=== PATIENT | male | born 1970 | race Caucasian/White ===

== ENCOUNTER 2020-08-16 10:42 | Inpatient (IN) | payer OTHER, MEDICAID, SELFPAY ==
[2020-08-16] VITALS (13 sets, daily range): BP systolic 140–172; BP diastolic 92–108; PULSE 79–95; RESP 13–22; TEMP 36.7–37; O2SAT 74–97; BMI 32.5; BMI 33.0
--- NOTE | 2020-08-16 11:05 | ED.ABDPAIN ---
HPI - Abdominal Pain <[facility] - Last Filed: 08/16/20 15:35> General Chief Complaint: Abdominal Pain Stated Complaint: irratability lower abd/progressively worse 1 month Time Seen by Provider: 08/16/20 10:50 Source: patient Mode of arrival: Ambulatory Limitations: no limitations History of Present Illness HPI narrative: The patient is a 50-year-old male current smoker with history of ?sensitive stomach who presents with a chief complaint of abdominal pain getting worse over the past 6-8 weeks. 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 He states that he has been vomiting every night. He does states that if anyone takes too much ibuprofen, it is me.He also endorses drinking alcohol every night to sleep. He has been waking with night sweats and chills. Endorses vomiting every night. States that he drinks every night due to his chronic ankle pain. He states that his pain is in the right lower quadrant goes across his entire abdomen. He felt a tearing sensation with increased pain recently. Denies any rectal pain or pressure. Denies any risk of sexually transmitted infections. Denies any dysuria, but states that his entire abdomen hurts when he urinates. Related Data Allergies Allergy/AdvReac Type Severity Reaction Status Date / Time No Known Drug Allergies Allergy Verified 08/16/20 10:52 Review of Systems <FABBY BeaversPSindhu - Last Filed: 08/16/20 15:35> Review of Systems Narrative: GENERAL: Denies chills, fatigue, malaise, fever, sweats. HEENT: Denies sinus pain, ear pain, sore throat, difficulty swallowing, dizziness. RESPIRATORY: Denies dyspnea, cough, wheezing, hemoptysis, sputum. CARDIOVASCULAR: Denies chest pain, palpitations, orthopnea, edema, GASTROINTESTINAL: See HPI : Denies dysuria, frequency, incontinence, hematuria, urinary retention. MUSCULOSKELETAL: denies weakness, joint pain, or bony pain SKIN: Denies rash, skin lesions, or other NEUROLOGIC: Denies weakness, headache, numbness, change in speech, confusion, seizures, incoordination. PSYCHIATRIC: No concerning psychosocial issues. 12 point review of systems is negative except for those stated above Patient History <[facility] - Last Filed: 08/16/20 15:35> Medical History (Updated 08/16/20 @ 15:24 by Michael Bonner MD) Arthritis History of kidney stones Surgical History (Updated 08/16/20 @ 15:11 by Michael Bonner MD) History of ankle surgery Family History (Updated 08/16/20 @ 15:15 by Michael Bonner MD) Other Adopted Social History Smoking Status: Current every day smoker Smoking Status: Current every day smoker tobacco type: cigarettes alcohol intake frequency: 0-2 drinks per day Substance Use Type: marijuana Exam <RONALDO Beavers - Last Filed: 08/16/20 15:35> Narrative Exam Narrative: GENERAL: This is a well-nourished, well-developed patient, in appears slightly uncomfortable HEAD: Atraumatic. Normocephalic. No temporal or scalp tenderness. EYES: Pupils equal round and reactive. Extraocular motions intact. No scleral icterus. No injection or drainage. ENT: Nose without bleeding, purulent drainage or septal hematoma. Wearing a mask. Airway patent. NECK: Trachea midline. No JVD or lymphadenopathy. Supple, nontender, no meningeal signs. CARDIOVASCULAR: Regular rate and rhythm RESPIRATORY: Clear to auscultation. Breath sounds equal bilaterally. No wheezes, rales, or rhonchi. No cough. No increased respiratory effort. No accessory muscle use. GASTROINTESTINAL: Abdomen soft, slightly distended, active bowel sounds. No hepato-splenomegaly, or palpable masses. Diffusely tender with guarding noted right lower quadrant, left lower quadrant EXTREMITIES: No clubbing, cyanosis, or edema. No joint tenderness, effusion, or edema noted. BACK: Nontender without deformity or crepitance. No flank tenderness. NEURO: AOx3. SKIN: No rash or erythema on visible skin Initial Vital Signs Initial Vital Signs: Vital Signs Temperature 98.0 F 08/16/20 10:50 Pulse Rate 95 H 08/16/20 10:50 Respiratory Rate 16 08/16/20 10:50 Blood Pressure 156/106 H 08/16/20 10:50 Pulse Oximetry 95 08/16/20 10:50 <Chris Neff DO - Last Filed: 08/16/20 16:26> Initial Vital Signs Initial Vital Signs: Vital Signs Temperature 98.0 F 08/16/20 10:50 Pulse Rate 95 H 08/16/20 10:50 Respiratory Rate 16 08/16/20 10:50 Blood Pressure 156/106 H 08/16/20 10:50 Pulse Oximetry 95 08/16/20 10:50 Scores <Cheryle Bell GLOBAL MARKETING MANAGERSindhuBC - Last Filed: 08/16/20 15:35> GCS [place] coma scale eye opening: Spontaneous Main coma scale verbal response: Orientated [place] coma scale motor response: Obey commands Main coma scale total score: 15 Course <Cheryle BellARIESBC - Last Filed: 08/16/20 15:35> Orders Ordered: ED Orders 08/16/20 10:53 EKG-12 Lead Stat 08/16/20 11:00 Amylase Stat Complete Blood Count AUTO DIFF Stat Comprehensive Metabolic Panel Stat D Dimer Stat Ethanol (ETOH) Stat Lactate (Lactic Acid) Stat Lipase Stat Partial Thromboplastin Time Stat Prothrombin Time INR Stat 08/16/20 11:11 XR acute abdomen series Stat 08/16/20 11:13 COVID19 Stat 08/16/20 12:53 CT abdomen pelvis w con Stat Acetaminophen (Acetaminophen 325 Mg Tablet) 650 mg PO Q6HR PRN PRN Reason: Pain, Mild (1-3) Enoxaparin Sodium (Enoxaparin 40 Mg/0.4 Ml Syringe) 40 mg SUBCUT DAILY [facility] Gabapentin (Gabapentin 300 Mg Capsule) 300 mg PO BID [facility] Hydromorphone HCl (Hydromorphone 1 Mg Inj) 1 mg IV Q4HR PRN PRN Reason: Pain, Severe (7-10) Lactated Ringer's (Lactated Ringers) 1,000 mls @ 150 mls/hr IV CONT MARTY Ketorolac Tromethamine (Ketorolac 30 Mg/Ml Vial) 30 mg IV Q6HR PRN PRN Reason: Pain, Moderate (4-6) Stop: 08/21/20 14:55 Naloxone HCl (Naloxone 0.4 Mg/Ml Vial) 0.2 mg IV Q2MIN PRN PRN Reason: Opiate Reversal Nicotine (Nicotine 14 Patch) 14 mg TOP DAILY [facility] Ondansetron HCl (Ondansetron 4 Mg/2 Ml Inj) 4 mg IV Q4HR PRN PRN Reason: Nausea And Vomiting Pantoprazole Sodium (Pantoprazole 40 Mg Vial) 40 mg IV DAILY MARTY Discontinued Medications Sodium Chloride (Normal Saline 0.9%) 1,000 mls @ 1,000 mls/hr IV BOLUS ONE Stop: 08/16/20 12:14 Last Infusion: 08/16/20 12:30 Dose: 0 mls/hr Documented by: Admin: 08/16/20 11:30 Dose: 1,000 mls/hr Documented by: MARY Sodium Chloride (Normal Saline 0.9%) 1,000 mls @ 1,000 mls/hr IV BOLUS ONE Stop: 08/16/20 13:51 Last Admin: 08/16/20 13:08 Dose: 1,000 mls/hr Documented by: MARY Metronidazole (Flagyl) 500 mg in 100 mls @ 100 mls/hr IV NOW ONE Stop: 08/16/20 14:55 Last Infusion: 08/16/20 15:12 Dose: 0 mls/hr Documented by: Admin: 08/16/20 14:08 Dose: 100 mls/hr Documented by: PAMELA Ciprofloxacin (Cipro) 400 mg in 200 mls @ 200 mls/hr IV NOW [facility] Piperacillin Sod/Tazobactam (Sod 4.5 gm/ Sodium Chloride) 100 mls @ 200 mls/hr IV NOW ONE Stop: 08/16/20 14:13 Last Admin: 08/16/20 14:55 Dose: 200 mls/hr Documented by: MARY Ondansetron HCl (Ondansetron 4 Mg/2 Ml Inj) 4 mg IV NOW ONE Stop: 08/16/20 11:16 Last Admin: 08/16/20 11:30 Dose: 4 mg Documented by: MARY Pantoprazole Sodium (Pantoprazole 40 Mg Vial) 40 mg IV NOW ONE Stop: 08/16/20 12:53 Last Admin: 08/16/20 13:07 Dose: 40 mg Documented by: MARY Vital Signs Vital signs: Vital Signs - 8 hr 08/16/20 10:50 08/16/20 11:47 08/16/20 12:29 Temperature 98.0 F Pulse Rate 95 H 84 Respiratory Rate 16 22 14 Blood Pressure 156/106 H Pulse Oximetry 95 88 L 94 08/16/20 12:30 08/16/20 13:00 08/16/20 13:30 Temperature Pulse Rate 83 82 81 Respiratory Rate 13 14 14 Blood Pressure 156/96 H 140/95 H Pulse Oximetry 94 92 95 08/16/20 14:00 08/16/20 14:31 Temperature Pulse Rate 80 Respiratory Rate 15 Blood Pressure Pulse Oximetry 96 74 L <Chris Neff, DO - Last Filed: 08/16/20 16:26> Orders Ordered: ED Orders 08/16/20 10:53 EKG-12 Lead Stat 08/16/20 11:00 Amylase Stat Complete Blood Count AUTO DIFF Stat Comprehensive Metabolic Panel Stat D Dimer Stat Ethanol (ETOH) Stat Lactate (Lactic Acid) Stat Lipase Stat Partial Thromboplastin Time Stat Prothrombin Time INR Stat 08/16/20 11:11 XR acute abdomen series Stat 08/16/20 11:13 COVID19 Stat 08/16/20 12:53 CT abdomen pelvis w con Stat Acetaminophen (Acetaminophen 325 Mg Tablet) 650 mg PO Q6HR PRN PRN Reason: Pain, Mild (1-3) Enoxaparin Sodium (Enoxaparin 40 Mg/0.4 Ml Syringe) 40 mg SUBCUT DAILY [facility] Gabapentin (Gabapentin 300 Mg Capsule) 300 mg PO BID [facility] Hydromorphone HCl (Hydromorphone 1 Mg Inj) 1 mg IV Q4HR PRN PRN Reason: Pain, Severe (7-10) Lactated Ringer's (Lactated Ringers) 1,000 mls @ 150 mls/hr IV CONT MARTY Ketorolac Tromethamine (Ketorolac 30 Mg/Ml Vial) 30 mg IV Q6HR PRN PRN Reason: Pain, Moderate (4-6) Stop: 08/21/20 14:55 Naloxone HCl (Naloxone 0.4 Mg/Ml Vial) 0.2 mg IV Q2MIN PRN PRN Reason: Opiate Reversal Nicotine (Nicotine 14 Patch) 14 mg TOP DAILY [facility] Ondansetron HCl (Ondansetron 4 Mg/2 Ml Inj) 4 mg IV Q4HR PRN PRN Reason: Nausea And Vomiting Pantoprazole Sodium (Pantoprazole 40 Mg Vial) 40 mg IV DAILY MARTY Discontinued Medications Sodium Chloride (Normal Saline 0.9%) 1,000 mls @ 1,000 mls/hr IV BOLUS ONE Stop: 08/16/20 12:14 Last Infusion: 08/16/20 12:30 Dose: 0 mls/hr Documented by: Admin: 08/16/20 11:30 Dose: 1,000 mls/hr Documented by: MARY Sodium Chloride (Normal Saline 0.9%) 1,000 mls @ 1,000 mls/hr IV BOLUS ONE Stop: 08/16/20 13:51 Last Admin: 08/16/20 13:08 Dose: 1,000 mls/hr Documented by: MARY Metronidazole (Flagyl) 500 mg in 100 mls @ 100 mls/hr IV NOW ONE Stop: 08/16/20 14:55 Last Infusion: 08/16/20 15:12 Dose: 0 mls/hr Documented by: Admin: 08/16/20 14:08 Dose: 100 mls/hr Documented by: PAMELA Ciprofloxacin (Cipro) 400 mg in 200 mls @ 200 mls/hr IV NOW MARTY Piperacillin Sod/Tazobactam (Sod 4.5 gm/ Sodium Chloride) 100 mls @ 200 mls/hr IV NOW ONE Stop: 08/16/20 14:13 Last Admin: 08/16/20 14:55 Dose: 200 mls/hr Documented by: MARY Ondansetron HCl (Ondansetron 4 Mg/2 Ml Inj) 4 mg IV NOW ONE Stop: 08/16/20 11:16 Last Admin: 08/16/20 11:30 Dose: 4 mg Documented by: MARY Pantoprazole Sodium (Pantoprazole 40 Mg Vial) 40 mg IV NOW ONE Stop: 08/16/20 12:53 Last Admin: 08/16/20 13:07 Dose: 40 mg Documented by: MARY Vital Signs Vital signs: Vital Signs - 8 hr 08/16/20 10:50 08/16/20 11:47 08/16/20 12:29 Temperature 98.0 F Pulse Rate 95 H 84 Respiratory Rate 16 22 14 Blood Pressure 156/106 H Pulse Oximetry 95 88 L 94 08/16/20 12:30 08/16/20 13:00 08/16/20 13:30 Temperature Pulse Rate 83 82 81 Respiratory Rate 13 14 14 Blood Pressure 156/96 H 140/95 H Pulse Oximetry 94 92 95 08/16/20 14:00 08/16/20 14:31 Temperature Pulse Rate 80 Respiratory Rate 15 Blood Pressure Pulse Oximetry 96 74 L MDM - Abdominal Pain <Cheryle Bell, GLOBAL MARKETING MANAGER-BC - Last Filed: 08/16/20 15:35> Differential Diagnosis Differential diagnosis: Likely abdominal pain, calculus of kidney, constipation and diverticulitis Lab Data Attestation: I reviewed the patient's lab results. Result diagrams: 08/16/20 11:00 08/16/20 11:00 Labs: Lab Results 08/16/20 08/16/20 08/16/20 Range/Units 11:00 11:00 11:00 WBC 12.3 H (4.5-11.0) X10^3/uL RBC 5.94 H (4.5-5.9) X10^6/uL Hgb 19.4 H (13.5-17.5) g/dL Hct 57.0 H (41-53) % MCV 95.9 (80-100) fL MCH 32.6 (26-34) PG MCHC 34.0 (30-36) % RDW 15.7 H (11.6-14.8) % Plt Count 214 (150-400) X10^3/uL Neut % (Auto) 65.9 (50-75) % Lymph % (Auto) 21.4 L (25-40) % [place] % (Auto) 11.7 (3-14) % Eos % (Auto) 0.6 L (2-4) % Baso % (Auto) 0.4 (0-2) % Neut # (Auto) 8100 H (2184-0832) /uL Lymph # (Auto) 2600 (4854-7757) /uL [place] # (Auto) 1400 H (0-900) /uL Eos # (Auto) 100 (0-450) /uL Baso # (Auto) 0 (0-100) /uL PT 11.8 (10.1-12.7) SECONDS INR 1.0 (0.9-1.3) APTT 33 (26.4-36.2) SECONDS D-Dimer (<230) ng/mL Sodium 141 (137-145) mmol/L Potassium 4.4 (3.4-5.1) mmol/L Chloride 105 (98-107) mmol/L Carbon Dioxide 28 (22-32) mmol/L BUN 14 (9-20) mg/dL Creatinine 1.23 (0.66-1.25) mg/dL Estimated GFR > 60.0 (>60) mL/min BUN/Creatinine Ratio 11.4 (6-22) Glucose 107 H (70-100) mg/dL Lactate (0.7-2.1) mmol/L Calcium 9.3 (8.4-10.2) mg/dL Total Bilirubin 0.6 (0.2-1.3) mg/dL AST 31 (17-59) IU/L ALT 32 (<50) IU/L Alkaline Phosphatase 53 (38-126) U/L Total Protein 8.2 (6.3-8.2) g/dL Albumin 4.6 (3.5-5.0) g/dL Globulin 3.6 (1.7-4.1) g/dL Albumin/Globulin Ratio 1.3 (1.0-2.8) Amylase (30-110) U/L Lipase 126 (23-300) U/L Ethyl Alcohol ( - 10) mg/dL SARS-CoV-2 (PCR) (Negative) 08/16/20 08/16/20 08/16/20 Range/Units 11:00 11:00 11:00 WBC (4.5-11.0) X10^3/uL RBC (4.5-5.9) X10^6/uL Hgb (13.5-17.5) g/dL Hct (41-53) % MCV (80-100) fL MCH (26-34) PG MCHC (30-36) % RDW (11.6-14.8) % Plt Count (150-400) X10^3/uL Neut % (Auto) (50-75) % Lymph % (Auto) (25-40) % [place] % (Auto) (3-14) % Eos % (Auto) (2-4) % Baso % (Auto) (0-2) % Neut # (Auto) (5643-6975) /uL Lymph # (Auto) (6747-9594) /uL [place] # (Auto) (0-900) /uL Eos # (Auto) (0-450) /uL Baso # (Auto) (0-100) /uL PT (10.1-12.7) SECONDS INR (0.9-1.3) APTT (26.4-36.2) SECONDS D-Dimer (<230) ng/mL Sodium (137-145) mmol/L Potassium (3.4-5.1) mmol/L Chloride (98-107) mmol/L Carbon Dioxide (22-32) mmol/L BUN (9-20) mg/dL Creatinine (0.66-1.25) mg/dL Estimated GFR (>60) mL/min BUN/Creatinine Ratio (6-22) Glucose (70-100) mg/dL Lactate 1.3 (0.7-2.1) mmol/L Calcium (8.4-10.2) mg/dL Total Bilirubin (0.2-1.3) mg/dL AST (17-59) IU/L ALT (<50) IU/L Alkaline Phosphatase (38-126) U/L Total Protein (6.3-8.2) g/dL Albumin (3.5-5.0) g/dL Globulin (1.7-4.1) g/dL Albumin/Globulin Ratio (1.0-2.8) Amylase 84 (30-110) U/L Lipase (23-300) U/L Ethyl Alcohol < 10 ( - 10) mg/dL SARS-CoV-2 (PCR) (Negative) 08/16/20 08/16/20 Range/Units 11:00 11:13 WBC (4.5-11.0) X10^3/uL RBC (4.5-5.9) X10^6/uL Hgb (13.5-17.5) g/dL Hct (41-53) % MCV (80-100) fL MCH (26-34) PG MCHC (30-36) % RDW (11.6-14.8) % Plt Count (150-400) X10^3/uL Neut % (Auto) (50-75) % Lymph % (Auto) (25-40) % [place] % (Auto) (3-14) % Eos % (Auto) (2-4) % Baso % (Auto) (0-2) % Neut # (Auto) (3992-9277) /uL Lymph # (Auto) (3844-9698) /uL [place] # (Auto) (0-900) /uL Eos # (Auto) (0-450) /uL Baso # (Auto) (0-100) /uL PT (10.1-12.7) SECONDS INR (0.9-1.3) APTT (26.4-36.2) SECONDS D-Dimer 352 H (<230) ng/mL Sodium (137-145) mmol/L Potassium (3.4-5.1) mmol/L Chloride (98-107) mmol/L Carbon Dioxide (22-32) mmol/L BUN (9-20) mg/dL Creatinine (0.66-1.25) mg/dL Estimated GFR (>60) mL/min BUN/Creatinine Ratio (6-22) Glucose (70-100) mg/dL Lactate (0.7-2.1) mmol/L Calcium (8.4-10.2) mg/dL Total Bilirubin (0.2-1.3) mg/dL AST (17-59) IU/L ALT (<50) IU/L Alkaline Phosphatase (38-126) U/L Total Protein (6.3-8.2) g/dL Albumin (3.5-5.0) g/dL Globulin (1.7-4.1) g/dL Albumin/Globulin Ratio (1.0-2.8) Amylase (30-110) U/L Lipase (23-300) U/L Ethyl Alcohol ( - 10) mg/dL SARS-CoV-2 (PCR) Negative (Negative) Point of care testing: Urine Dip Bedside Urine Glucose Negative Bedside Urine Bilirubin - Negative Bedside Urine Ketone - Negative Urine Specific [place] 1.010 Bedside Urine Occult Blood +/- Bedside Urine pH 6 Bedside Urine Protein - Negative Bedside Urine Urobilinogen - Negative Bedside Urine Nitrite - Negative Bedside Urine Leukocytes - Negative Esterase Imaging Data Abdominal x-ray: Radiologist's Impression: [address] [place] [id number] ReportSigned Patient: Bari Martínez KMR#: [id number]: 1970Acct:[id number]/Sex: 50 / MDate of Service: 08/16/20Loc: EDAccession Number: [id number] Procedure: XR acute abdomen series Ordering Provider: Cheryle Bell-FRANCESCO PROCEDURE: XR ACUTE ABDOMEN SERIES INDICATIONS: abd pain, ? constipation TECHNIQUE: One view chest and two views of the abdomen were acquired. COMPARISON: None. FINDINGS: Surgical changes and devices: None. Chest: Lungs are clear. Heart size is normal. No pleural effusions. No pneumoperitoneum. Abdomen: Mild to moderate stool. No transition point or evidence of bowel obstruction. Bones: No suspicious bony lesions. IMPRESSION: Mild to moderate stool. No specific evidence of bowel obstruction seen at this time although if the patient's symptoms do not improve, continued surveillance with abdominal series radiographs could be performed. Dictated by: Sal Rodríguez M.D. on 08/16/2020 at 12:00 Approved by: Sal Rodríguez M.D. on 08/16/2020 at 12:01 CT scan - abdomen/pelvis: Radiologist's Impression: [address] [place] [id number] Scan ReportSigned Patient: Bari Martínez KMR#: [id number]: 1970Acct:[id number]/Sex: 50 / MDate of Service: 08/16/20Loc: EDAccession Number: [id number] Procedure: CT abdomen pelvis w con Ordering Provider: Cheryle Bell- PROCEDURE: CT ABDOMEN PELVIS W CON INDICATIONS: abd pain, bloating TECHNIQUE: After the administration of intravenous contrast, 5 mm thick sections acquired from the diaphragm to the symphysis. 5 mm coronal and sagittal reformats were acquired. For radiation dose reduction, the following was used: automated exposure control, adjustment of mA and/or kV according to patient size. COMPARISON: None. FINDINGS: Image quality: Excellent. ABDOMEN: Lung bases: Bibasilar dependent atelectasis is seen. Heart size is normal. Solid organs: Liver is normal in size and enhancement. Gallbladder is within normal limits. Biliary system is non dilated. Pancreas enhances normally. Spleen is normal in size and enhancement. No adrenal nodules. Kidneys demonstrate normal size and enhancement, without hydronephrosis. 6 millimeter nonobstructing stone is noted in midpole of left kidney. 2-3 millimeter nonobstructing stone is seen in midpole of right kidney. Peritoneum and bowel: There is no bowel obstruction. No gastric or small bowel wall thickening. Appendix is visualized and is within normal limits. Ascending colon, transverse colon and descending colon appears within normal limits. Significant wall thickening with pericolonic fat stranding involving mid to distal portion of sigmoid colon within left lower quadrant is seen. Extensive sigmoid diverticulosis is seen. Ill-defined hypodense area medial to the inflamed mid to distal sigmoid colon is noted with surrounding fat stranding and subtle peripheral enhancement concerning for early developing abscess collection. No peritoneal free fluid or free air. Nodes and vessels: No retroperitoneal or mesenteric adenopathy by size criteria. Aorta and inferior vena cava are normal in size. Miscellaneous: No ventral hernias. PELVIS: Genitourinary: Bladder wall thickness is normal. Miscellaneous: No inguinal hernias or adenopathy. Bones: No suspicious bony lesions. No vertebral body compression fractures. IMPRESSION: 1. Finding is suggestive of acute diverticulitis involving mid to distal sigmoid colon in left lower quadrant with suggestion of early developing abscess collection medial to the inflamed sigmoid colon. No discrete drainable fluid collection is seen. No peritoneal free fluid or free air. 2. Normal appendix. No bowel obstruction. 3. Bilateral nonobstructing renal calculi. No hydronephrosis. 4. Bibasilar atelectasis. Dictated by: Levar Del Castillo M.D. on 08/16/2020 at 12:32 Approved by: Levar Del Castillo M.D. on 08/16/2020 at 12:35 ECG Data Attestation: I personally reviewed and interpreted this ECG as follows: Interpretation: Sinus rhythm. Ventricular rate 95. P.r. interval 120. QRS 90. Viewed by Dr Neff MDM Narrative Medical decision making narrative: The patient is a 50-year-old male who presents with a chief complaint of lower abdominal pain that started the week before [place]. Overall he seems well and nontoxic. Slight leukocytosis noted on lab work. Suspect possibility of gastritis given his alcohol, ibuprofen use. However given his guarding to palpation, did obtain a CT which showed diverticulitis was the possibility of an early abscess. Spoke with Dr. Bonner from surgery, antibiotics ordered, coronavirus test negative, plan to admit patient. Surgery down to evaluate patient accepted for admission. Patient is agreeable to IV antibiotics. No questions or concerns upon admission. <Chris Neff DO - Last Filed: 08/16/20 16:26> Lab Data Labs: Lab Results 08/16/20 08/16/20 08/16/20 Range/Units 11:00 11:00 11:00 WBC 12.3 H (4.5-11.0) X10^3/uL RBC 5.94 H (4.5-5.9) X10^6/uL Hgb 19.4 H (13.5-17.5) g/dL Hct 57.0 H (41-53) % MCV 95.9 (80-100) fL MCH 32.6 (26-34) PG MCHC 34.0 (30-36) % RDW 15.7 H (11.6-14.8) % Plt Count 214 (150-400) X10^3/uL Neut % (Auto) 65.9 (50-75) % Lymph % (Auto) 21.4 L (25-40) % [place] % (Auto) 11.7 (3-14) % Eos % (Auto) 0.6 L (2-4) % Baso % (Auto) 0.4 (0-2) % Neut # (Auto) 8100 H (6951-6042) /uL Lymph # (Auto) 2600 (7772-6753) /uL [place] # (Auto) 1400 H (0-900) /uL Eos # (Auto) 100 (0-450) /uL Baso # (Auto) 0 (0-100) /uL PT 11.8 (10.1-12.7) SECONDS INR 1.0 (0.9-1.3) APTT 33 (26.4-36.2) SECONDS D-Dimer (<230) ng/mL Sodium 141 (137-145) mmol/L Potassium 4.4 (3.4-5.1) mmol/L Chloride 105 (98-107) mmol/L Carbon Dioxide 28 (22-32) mmol/L BUN 14 (9-20) mg/dL Creatinine 1.23 (0.66-1.25) mg/dL Estimated GFR > 60.0 (>60) mL/min BUN/Creatinine Ratio 11.4 (6-22) Glucose 107 H (70-100) mg/dL Lactate (0.7-2.1) mmol/L Calcium 9.3 (8.4-10.2) mg/dL Total Bilirubin 0.6 (0.2-1.3) mg/dL AST 31 (17-59) IU/L ALT 32 (<50) IU/L Alkaline Phosphatase 53 (38-126) U/L Total Protein 8.2 (6.3-8.2) g/dL Albumin 4.6 (3.5-5.0) g/dL Globulin 3.6 (1.7-4.1) g/dL Albumin/Globulin Ratio 1.3 (1.0-2.8) Amylase (30-110) U/L Lipase 126 (23-300) U/L Ethyl Alcohol ( - 10) mg/dL SARS-CoV-2 (PCR) (Negative) 08/16/20 08/16/20 08/16/20 Range/Units 11:00 11:00 11:00 WBC (4.5-11.0) X10^3/uL RBC (4.5-5.9) X10^6/uL Hgb (13.5-17.5) g/dL Hct (41-53) % MCV (80-100) fL MCH (26-34) PG MCHC (30-36) % RDW (11.6-14.8) % Plt Count (150-400) X10^3/uL Neut % (Auto) (50-75) % Lymph % (Auto) (25-40) % [place] % (Auto) (3-14) % Eos % (Auto) (2-4) % Baso % (Auto) (0-2) % Neut # (Auto) (9825-2543) /uL Lymph # (Auto) (2443-3936) /uL [place] # (Auto) (0-900) /uL Eos # (Auto) (0-450) /uL Baso # (Auto) (0-100) /uL PT (10.1-12.7) SECONDS INR (0.9-1.3) APTT (26.4-36.2) SECONDS D-Dimer (<230) ng/mL Sodium (137-145) mmol/L Potassium (3.4-5.1) mmol/L Chloride (98-107) mmol/L Carbon Dioxide (22-32) mmol/L BUN (9-20) mg/dL Creatinine (0.66-1.25) mg/dL Estimated GFR (>60) mL/min BUN/Creatinine Ratio (6-22) Glucose (70-100) mg/dL Lactate 1.3 (0.7-2.1) mmol/L Calcium (8.4-10.2) mg/dL Total Bilirubin (0.2-1.3) mg/dL AST (17-59) IU/L ALT (<50) IU/L Alkaline Phosphatase (38-126) U/L Total Protein (6.3-8.2) g/dL Albumin (3.5-5.0) g/dL Globulin (1.7-4.1) g/dL Albumin/Globulin Ratio (1.0-2.8) Amylase 84 (30-110) U/L Lipase (23-300) U/L Ethyl Alcohol < 10 ( - 10) mg/dL SARS-CoV-2 (PCR) (Negative) 08/16/20 08/16/20 Range/Units 11:00 11:13 WBC (4.5-11.0) X10^3/uL RBC (4.5-5.9) X10^6/uL Hgb (13.5-17.5) g/dL Hct (41-53) % MCV (80-100) fL MCH (26-34) PG MCHC (30-36) % RDW (11.6-14.8) % Plt Count (150-400) X10^3/uL Neut % (Auto) (50-75) % Lymph % (Auto) (25-40) % [place] % (Auto) (3-14) % Eos % (Auto) (2-4) % Baso % (Auto) (0-2) % Neut # (Auto) (8578-2700) /uL Lymph # (Auto) (5654-0321) /uL [place] # (Auto) (0-900) /uL Eos # (Auto) (0-450) /uL Baso # (Auto) (0-100) /uL PT (10.1-12.7) SECONDS INR (0.9-1.3) APTT (26.4-36.2) SECONDS D-Dimer 352 H (<230) ng/mL Sodium (137-145) mmol/L Potassium (3.4-5.1) mmol/L Chloride (98-107) mmol/L Carbon Dioxide (22-32) mmol/L BUN (9-20) mg/dL Creatinine (0.66-1.25) mg/dL Estimated GFR (>60) mL/min BUN/Creatinine Ratio (6-22) Glucose (70-100) mg/dL Lactate (0.7-2.1) mmol/L Calcium (8.4-10.2) mg/dL Total Bilirubin (0.2-1.3) mg/dL AST (17-59) IU/L ALT (<50) IU/L Alkaline Phosphatase (38-126) U/L Total Protein (6.3-8.2) g/dL Albumin (3.5-5.0) g/dL Globulin (1.7-4.1) g/dL Albumin/Globulin Ratio (1.0-2.8) Amylase (30-110) U/L Lipase (23-300) U/L Ethyl Alcohol ( - 10) mg/dL SARS-CoV-2 (PCR) Negative (Negative) Point of care testing: Urine Dip Bedside Urine Glucose Negative Bedside Urine Bilirubin - Negative Bedside Urine Ketone - Negative Urine Specific [place] 1.010 Bedside Urine Occult Blood +/- Bedside Urine pH 6 Bedside Urine Protein - Negative Bedside Urine Urobilinogen - Negative Bedside Urine Nitrite - Negative Bedside Urine Leukocytes - Negative Esterase Discharge Plan Departure Admit Date/Time: 08/16/20 14:43 Admit Provider: Michael Bonner <Chris Neff DO - Last Filed: 08/16/20 16:26> Cosign ED Attending Cosignature Attestation: Dr Neff Co-Sign Statement: I was available for consultation during this patient's emergency department visit. This chart is signed by myself for administrative purposes only. I did not have direct contact with this patient during this visit. They were seen independently by the APC.
--- NOTE | 2020-08-16 11:11 | DI.RAD.S_ITS ---
PROCEDURE: XR ACUTE ABDOMEN SERIES INDICATIONS: abd pain, ? constipation TECHNIQUE: One view chest and two views of the abdomen were acquired. COMPARISON: None. FINDINGS: Surgical changes and devices: None. Chest: Lungs are clear. Heart size is normal. No pleural effusions. No pneumoperitoneum. Abdomen: Mild to moderate stool. No transition point or evidence of bowel obstruction. Bones: No suspicious bony lesions. IMPRESSION: Mild to moderate stool. No specific evidence of bowel obstruction seen at this time although if the patient's symptoms do not improve, continued surveillance with abdominal series radiographs could be performed. Dictated by: Sal Rodríguez M.D. on 08/16/2020 at 12:00 Approved by: Sal Rodríguez M.D. on 08/16/2020 at 12:01
[2020-08-16 11:13] LABS: Add Manual Diff / Slide Review NO; Basophils Absolute Auto 0 /uL (0-100); Basophils Percent Auto 0.4 % (0-2); Eosinophils Absolute Auto 100 /uL (0-450); Eosinophils Percent Auto 0.6 % (2-4); Hemoglobin 19.4 g/dL (13.5-17.5); Lymphocytes Absolute Auto 2600 /uL (1100-4500); Lymphocytes Percent Auto 21.4 % (25-40); Mean Corpuscular Hemoglobin 32.6 PG (26-34); Mean Corpuscular Volume 95.9 fL (80-100); Monocytes Absolute Auto 1400 /uL (0-900); Monocytes Percent Auto 11.7 % (3-14); Neutrophils Absolute Auto 8100 /uL (1500-7000); Neutrophils Percent Auto 65.9 % (50-75); Platelet Count 214 X10^3/uL (150-400); Red Blood Cell Count 5.94 X10^6/uL (4.5-5.9); Red Cell Distribution Width 15.7 % (11.6-14.8); White Blood Cell Count 12.3 X10^3/uL (4.5-11.0)
[2020-08-16 11:15] LABS: Prothrombin Time 11.8 SECONDS (10.1-12.7)
[2020-08-16 11:17] LABS: PTT Partial Thromboplastin Tim 33 SECONDS (26.4-36.2)
[2020-08-16 11:19] LABS: Alanine Aminotransferase 32 IU/L (<50); Albumin 4.6 g/dL (3.5-5.0); Albumin Globulin Ratio 1.3 (1.0-2.8); Alkaline Phosphatase 53 U/L (38-126); Aspartate Aminotransferase 31 IU/L (17-59); BUN Creatinine Ratio 11.4 (6-22); Bilirubin Total 0.6 mg/dL (0.2-1.3); Blood Urea Nitrogen 14 mg/dL (9-20); Calcium 9.3 mg/dL (8.4-10.2); Carbon Dioxide 28 mmol/L (22-32); Chloride 105 mmol/L (98-107); Estimated Glomerular Filt Rate > 60.0 mL/min (>60); Globulin 3.6 g/dL (1.7-4.1); Glucose 107 mg/dL (70-100); HEMOLYSIS < 15 (0-50); Lipase 126 U/L (23-300); Potassium 4.4 mmol/L (3.4-5.1); Sodium 141 mmol/L (137-145); Total Protein 8.2 g/dL (6.3-8.2)
[2020-08-16 11:28] LABS: Lactate (Lactic Acid) 1.3 mmol/L (0.7-2.1)
[2020-08-16] MEDS: ONDANSETRON 4 MG/2 ML INJ IV (11:30)
[2020-08-16] MEDS: SODIUM CHLORIDE 0.9% 1,000 ML 1000 ML IV ×2 (11:30→13:08)
[2020-08-16 11:36] LABS: Amylase 84 U/L (30-110)
[2020-08-16 11:41] LABS: Ethanol (ETOH) < 10 mg/dL
[2020-08-16 11:46] LABS: COVID19 -Nasal RAPID Negative (Negative)
[2020-08-16 12:11] LABS: D Dimer 352 ng/mL (<230)
--- NOTE | 2020-08-16 12:53 | DI.CT.S_ITS ---
PROCEDURE: CT ABDOMEN PELVIS W CON INDICATIONS: abd pain, bloating TECHNIQUE: After the administration of intravenous contrast, 5 mm thick sections acquired from the diaphragm to the symphysis. 5 mm coronal and sagittal reformats were acquired. For radiation dose reduction, the following was used: automated exposure control, adjustment of mA and/or kV according to patient size. COMPARISON: None. FINDINGS: Image quality: Excellent. ABDOMEN: Lung bases: Bibasilar dependent atelectasis is seen. Heart size is normal. Solid organs: Liver is normal in size and enhancement. Gallbladder is within normal limits. Biliary system is non dilated. Pancreas enhances normally. Spleen is normal in size and enhancement. No adrenal nodules. Kidneys demonstrate normal size and enhancement, without hydronephrosis. 6 millimeter nonobstructing stone is noted in midpole of left kidney. 2-3 millimeter nonobstructing stone is seen in midpole of right kidney. Peritoneum and bowel: There is no bowel obstruction. No gastric or small bowel wall thickening. Appendix is visualized and is within normal limits. Ascending colon, transverse colon and descending colon appears within normal limits. Significant wall thickening with pericolonic fat stranding involving mid to distal portion of sigmoid colon within left lower quadrant is seen. Extensive sigmoid diverticulosis is seen. Ill-defined hypodense area medial to the inflamed mid to distal sigmoid colon is noted with surrounding fat stranding and subtle peripheral enhancement concerning for early developing abscess collection. No peritoneal free fluid or free air. Nodes and vessels: No retroperitoneal or mesenteric adenopathy by size criteria. Aorta and inferior vena cava are normal in size. Miscellaneous: No ventral hernias. PELVIS: Genitourinary: Bladder wall thickness is normal. Miscellaneous: No inguinal hernias or adenopathy. Bones: No suspicious bony lesions. No vertebral body compression fractures. IMPRESSION: 1. Finding is suggestive of acute diverticulitis involving mid to distal sigmoid colon in left lower quadrant with suggestion of early developing abscess collection medial to the inflamed sigmoid colon. No discrete drainable fluid collection is seen. No peritoneal free fluid or free air. 2. Normal appendix. No bowel obstruction. 3. Bilateral nonobstructing renal calculi. No hydronephrosis. 4. Bibasilar atelectasis. Dictated by: Levar Del Castillo M.D. on 08/16/2020 at 12:32 Approved by: Levar Del Castillo M.D. on 08/16/2020 at 12:35
[2020-08-16] MEDS: PANTOPRAZOLE 40 MG VIAL IV ×2 (13:07→17:01)
[2020-08-16] MEDS: metroNIDAZOLE 500 MG/100 ML PIGGYBACK 100 MG IV (14:08)
[2020-08-16] MEDS: PIPERACILLIN/TAZO 4.5 GM in SODIUM CHLORIDE 0.9% 100 ML 200 ML IV (14:55)
--- NOTE | 2020-08-16 15:07 | PM.HP.1 ---
History of Present Illness History of Present Illness Date Patient Seen: 08/16/20 Time Patient Seen: 14:40 Chief complaint: irratability lower abd/progressively worse 1 month Narrative: Patient is a gentleman who has not been feeling completely well for about a month. Last 2 weeks he has developed pain in his lower abdomen. Most of his pain actually is been in the right lower quadrant. He has noted that he has become somewhat distended gradually. When he urinates and then stops he sometimes gets a shooting pain through both sides of his pelvis. He has a history of kidney stones in the distant past. No blood in his urine. No dysuria. He has been having frequent bouts of nausea and vomiting at night. Up until recently had no problems swallowing but after eating and vomiting a sandwich he did have a little trouble swallowing. No hematemesis. He has noticed that his stool has been a little darker though not black. He takes a large amount of ibuprofen due to ankle pain from an old injury. He also drinks 2 shots before he goes to bed. The patient has not had pain like this before. He has noticed today that if he had a very small bowel movement which is unusual and is not passing flatus and longer. He has been having night sweats for a few weeks. He does not know his family history regarding malignancy as he is adopted. Patient History Medical History (Updated 08/16/20 @ 15:24 by Michael Bonner MD) Arthritis History of kidney stones Surgical History (Updated 08/16/20 @ 15:11 by Michael Bonner MD) History of ankle surgery Family & Social History Family History (Updated 08/16/20 @ 15:15 by Michael Bonner MD) Other Adopted Safety & Behavioral: Feels Safe in Current Yes Environment Been Physically Hurt or No Threatened By a Person Tobacco & Substance use: Smoking Status Current every day smoker alcohol intake frequency 0-2 drinks per day Substance Use Type marijuana Meds Home Medications and Allergies Allergies Allergy/AdvReac Type Severity Reaction Status Date / Time No Known Drug Allergies Allergy Verified 08/16/20 10:52 Review of Systems Review of Systems Narrative: Patient denies pain in his eyes double vision earache sore throats trouble with cough cold or asthma. Patient denies tooth aches. No prior swallowing issues. No history of reflux. No chest pain or heart problems he is aware of. He does smoke a half pack a day. No sputum production. No no black or bloody bowel movements. No recent blood in his urine or dysuria. No seizures or blackouts. No anxiety or depression. No unusual bruising or bleeding. He is heavily tattooed on his back. Otherwise no skin lesions. He does have arthritis he says all over. Thus he takes ibuprofen. Exam Vital Signs (past 8 hours): - 08/16/20 10:50 08/16/20 11:47 08/16/20 12:29 Temperature 98.0 F Pulse Rate 95 H 84 Respiratory Rate 16 22 14 Blood Pressure 156/106 H Pulse Oximetry 95 88 L 94 08/16/20 12:30 08/16/20 13:00 08/16/20 13:30 Temperature Pulse Rate 83 82 81 Respiratory Rate 13 14 14 Blood Pressure 156/96 H 140/95 H Pulse Oximetry 94 92 95 08/16/20 14:00 Temperature Pulse Rate 80 Respiratory Rate 15 Blood Pressure Pulse Oximetry 96 Oxygen Delivery Method Room Air Narrative Exam Narrative: Cooperative in no apparent distress. Balding. Eyes protrude slightly. Irises blue in color. Pupils equal round reactive to light. Nonicteric. Conjunctiva pink. Patient is edentulous. No open lesions noted in his mouth though it is somewhat dry. No splits in his lips. No lesions in his ears. Lungs are clear to auscultation without rales or rhonchi. After excellent effort. Equal percussion. Heart regular rate and rhythm no murmur gallop. No heave lift or thrill. No bruit in the neck. Patient has no nodes in the neck or supraclavicular areas. Trachea is midline mobile. Thyroid is not enlarged. No masses or tenderness in the neck or thyroid. Abdomen is protuberant soft. Patient has tenderness actually in the left lower quadrant though he says that it earlier was in the right lower quadrant. There are no palpable masses. No guarding. No ventral hernias appreciated. Pulses 2+ at the wrist. Skin other than tattoos 2+ texture and turgor. No open lesions. Patient is alert and oriented x3. Speech rate and content are appropriate. Affect is appropriate. Objective Labs Result Diagrams: 08/16/20 11:00 08/16/20 11:00 Labs: Laboratory Results - last 24 hr 08/16/20 08/16/2008/16/21 11:00 11:00 11:00 WBC 12.3 H RBC 5.94 H Hgb 19.4 H Hct 57.0 H MCV 95.9 MCH 32.6 MCHC 34.0 RDW 15.7 H Plt Count 214 Neut % (Auto) 65.9 Lymph % (Auto) 21.4 L [place] % (Auto) 11.7 Eos % (Auto) 0.6 L Baso % (Auto) 0.4 Neut # (Auto) 8100 H Lymph # (Auto) 2600 [place] # (Auto) 1400 H Eos # (Auto) 100 Baso # (Auto) 0 PT 11.8 INR 1.0 APTT 33 D-Dimer Sodium 141 Potassium 4.4 Chloride 105 Carbon Dioxide 28 BUN 14 Creatinine 1.23 Estimated GFR > 60.0 BUN/Creatinine Ratio 11.4 Glucose 107 H Lactate Calcium 9.3 Total Bilirubin 0.6 AST 31 ALT 32 Alkaline Phosphatase 53 Total Protein 8.2 Albumin 4.6 Globulin 3.6 Albumin/Globulin Ratio 1.3 Amylase Lipase 126 Ethyl Alcohol SARS-CoV-2 (PCR) 08/16/20 08/16/20 08/16/20 11:00 11:00 11:00 WBC RBC Hgb Hct MCV MCH MCHC RDW Plt Count Neut % (Auto) Lymph % (Auto) [place] % (Auto) Eos % (Auto) Baso % (Auto) Neut # (Auto) Lymph # (Auto) [place] # (Auto) Eos # (Auto) Baso # (Auto) PT INR APTT D-Dimer Sodium Potassium Chloride Carbon Dioxide BUN Creatinine Estimated GFR BUN/Creatinine Ratio Glucose Lactate 1.3 Calcium Total Bilirubin AST ALT Alkaline Phosphatase Total Protein Albumin Globulin Albumin/Globulin Ratio Amylase 84 Lipase Ethyl Alcohol < 10 SARS-CoV-2 (PCR) 08/16/20 08/16/20 11:00 11:13 WBC RBC Hgb Hct MCV MCH MCHC RDW Plt Count Neut % (Auto) Lymph % (Auto) [place] % (Auto) Eos % (Auto) Baso % (Auto) Neut # (Auto) Lymph # (Auto) [place] # (Auto) Eos # (Auto) Baso # (Auto) PT INR APTT D-Dimer 352 H Sodium Potassium Chloride Carbon Dioxide BUN Creatinine Estimated GFR BUN/Creatinine Ratio Glucose Lactate Calcium Total Bilirubin AST ALT Alkaline Phosphatase Total Protein Albumin Globulin Albumin/Globulin Ratio Amylase Lipase Ethyl Alcohol SARS-CoV-2 (PCR) Negative Assessment & Plan Assessment and plan (1) Acute diverticulitis of intestine: Problem details: Will begin broad-spectrum antibiotics. Admit patient. I talked with him regarding the potential outcomes that is resolution with IV antibiotics verses failure of treatment and the need for an operation that could result in a ostomy. He appears to understand the gravity of the situation and is agreeable to be admitted for IV antibiotics. If we are successful he will need a colonoscopy in about 6 weeks to determine if there is any tumor or similar problem that might have been the source of his diverticulitis. Status: Acute (2) Intra-abdominal abscess: Problem details: Discuss this with the patient as well. This is an early abscess and may be amenable to simple treatment with IV antibiotics. Status: Acute (3) Obesity (BMI 30.0-34.9): Problem details: Patient has a BMI of 32. At this time no plans for severe diet though at some point he will be placed on a low residue diet followed by a high-fiber diet. Status: Acute (4) Arthritis: Problem details: Chronic problem for the patient. Will give IV nonsteroidals. Status: Acute (5) Gastritis: Problem details: Suspect this based on the fact that he drinks, uses ibuprofen, and has been seeing dark stool of late along with nausea and vomiting. Will treat him with proton pump inhibitor. Status: Acute
[2020-08-16] MEDS: NICOTINE 14 PATCH 14 MG TOP (17:04)
[2020-08-16] MEDS: LACTATED RINGERS 1,000 ML 150 ML IV ×2 (17:05→22:28)
[2020-08-16] MEDS: ENOXAPARIN 40 MG/0.4 ML SYRINGE SUBCUT (17:06)
[2020-08-16] MEDS: GABAPENTIN 300 MG CAPSULE PO (20:09)
--- NOTE | 2020-08-16 20:16 | PC.NURSE ---
Addendum entered by Michelle Perales R.N. 08/16/20 21:42: *AMEND Pt refuses SCD, NO compression socks on Addendum entered by Michelle Perales R.N. 08/16/20 21:38: Pt refuses SCD's. however has compression sock on bilaterally. Original Note: Pt arrived from ED @ 1550. Alert/oriented. Pt states his abdomen is a bit tender. Order for NPO @ this time. pt taking ice chips w/o incidence. IVF LR @ 150cc/hr infusing into the LFA via pump w/o incidence. Pt independent in room Call light w/in reach, pt calls appropriately for needs Continue w/plan of care.
[2020-08-16 20:37] LABS: Add Manual Diff / Slide Review NO; Basophils Absolute Auto 100 /uL (0-100); Basophils Percent Auto 0.5 % (0-2); Eosinophils Absolute Auto 100 /uL (0-450); Eosinophils Percent Auto 1.1 % (2-4); Hematocrit 52.8 % (41-53); Hemoglobin 17.9 g/dL (13.5-17.5); Lymphocytes Absolute Auto 2500 /uL (1100-4500); Lymphocytes Percent Auto 18.7 % (25-40); Mean Corpuscular HGB Conc 33.9 % (30-36); Mean Corpuscular Hemoglobin 32.6 PG (26-34); Mean Corpuscular Volume 96.1 fL (80-100); Monocytes Absolute Auto 1600 /uL (0-900); Monocytes Percent Auto 11.9 % (3-14); Neutrophils Absolute Auto 8900 /uL (1500-7000); Neutrophils Percent Auto 67.8 % (50-75); Platelet Count 174 X10^3/uL (150-400); Red Cell Distribution Width 15.6 % (11.6-14.8); White Blood Cell Count 13.1 X10^3/uL (4.5-11.0)
[2020-08-16] MEDS: ACETAMINOPHEN 325 MG TABLET 650 MG PO (22:27)
[2020-08-17 00:40] VITALS: BP 124/90; PULSE 93; RESP 14; TEMP 36.6; O2SAT 95
[2020-08-17 03:55] VITALS: BP 134/98; PULSE 82; RESP 14; TEMP 36.6; O2SAT 96
[2020-08-17] MEDS: ACETAMINOPHEN 325 MG TABLET 650 MG PO ×3 (03:57→22:14)
[2020-08-17] MEDS: LACTATED RINGERS 1,000 ML 150 ML IV ×2 (03:59→11:45)
[2020-08-17 07:59] VITALS: BP 153/84; PULSE 86; RESP 20; TEMP 36.6; O2SAT 96
[2020-08-17 09:09] LABS: Add Manual Diff / Slide Review NO; Basophils Absolute Auto 0 /uL (0-100); Basophils Percent Auto 0.4 % (0-2); Eosinophils Absolute Auto 100 /uL (0-450); Eosinophils Percent Auto 1.3 % (2-4); Hematocrit 53.1 % (41-53); Hemoglobin 17.8 g/dL (13.5-17.5); Lymphocytes Absolute Auto 2200 /uL (1100-4500); Lymphocytes Percent Auto 19.1 % (25-40); Mean Corpuscular HGB Conc 33.5 % (30-36); Mean Corpuscular Hemoglobin 32.1 PG (26-34); Monocytes Absolute Auto 1400 /uL (0-900); Monocytes Percent Auto 12.3 % (3-14); Neutrophils Absolute Auto 7600 /uL (1500-7000); Neutrophils Percent Auto 66.9 % (50-75); Platelet Count 178 X10^3/uL (150-400); Red Blood Cell Count 5.53 X10^6/uL (4.5-5.9); Red Cell Distribution Width 15.4 % (11.6-14.8); White Blood Cell Count 11.4 X10^3/uL (4.5-11.0)
[2020-08-17] MEDS: PIPERACILLIN-TAZO 3.375 GM/50 ML FROZ.PIGGY IV ×3 (09:10→20:39)
[2020-08-17] MEDS: ENOXAPARIN 40 MG/0.4 ML SYRINGE SUBCUT (09:10)
[2020-08-17] MEDS: NICOTINE 14 PATCH 14 MG TOP (09:11)
[2020-08-17] MEDS: GABAPENTIN 300 MG CAPSULE PO ×2 (09:11→20:39)
[2020-08-17] MEDS: PANTOPRAZOLE 40 MG VIAL IV (09:21)
--- NOTE | 2020-08-17 10:51 | CM.DANOTE ---
DCP: Case received, EMR reviewed and met with patient. Introduced self and role. Was able to obtain information regarding patient's baseline activity status as well as his current living situation. DCP assessment completed with information currently available. Patient is a 50 year old male who admitted yesterday afternoon to the care of the hospitalist team. PCP: Franci Blake. Payer: confirmed: [facility]. Patient came to the hospital via private vehicle secondary to having lower abdominal discomfort. Patient holds current diagnosis of diverticulitis of the intestine and peritoneal abscess. He will be getting IV antibiotics, no surgery, was already consulted by surgery. Met with patient in his room. He is alert and oriented. He was laying on his bed. He is independent at baseline, stated, he has never had anything like this before. He resides here in [place] with his room mate Master. According to notes, he will be encouraged to have a colonoscopy in 6 weeks from discharge. P: DCP to continue to follow for any needs. He should be able to go home when he is medically stable. Abena Gentile RN/Airbrush Artist Technical
--- NOTE | 2020-08-17 13:58 | PC.NURSE ---
Addendum entered by Josephine Samano R.N. 08/17/20 14:55: Left PIV infusing intermittent ABX and pt tolerating well. Original Note: pt AO and receptive to care. Left AC PIV infusing LR at 150/hr per orders. IND in room. Mild 1/10 pain to lower ABD and reporting an improvement with distension and pain. No nausea. NPO and ice chips. Nicotine patch changed to right shoulder this AM. pt expressed concerns regarding the possibility of an ostomy bag, I provided some education which seemed to settle his anxiety.
[2020-08-17 15:55] VITALS: BP 132/92; PULSE 94; RESP 18; TEMP 37.2; O2SAT 94
[2020-08-17 17:01] VITALS: BMI 33.0
--- NOTE | 2020-08-17 18:19 | PM.PN.1 ---
Subjective Subjective Date Patient Seen: 08/17/20 Time Patient Seen: 18:20 Interval history: Patient seen this morning and again this evening. His pain is pretty much gone. He has begun to pass flatus. No bowel movement yet. Feels less distended. He did not shower today. No cough cold. No chest pain. No seizures or blackouts. No anxiety or depression. Exam Vital Signs (past 8 hours): - 08/17/20 15:55 Temperature 99.0 F Pulse Rate 94 H Respiratory Rate 18 Blood Pressure 132/92 H Pulse Oximetry 94 Oxygen Delivery Method Room Air Oxygen Flow Rate 0 Narrative Exam Narrative: Lungs are clear to auscultation. No rales or rhonchi. Abdomen is protuberant mildly distended but soft. No guarding and no tenderness. Patient is alert and oriented. Speech rate and content are appropriate. Affect is appropriate. Objective Labs Result Diagrams: 08/17/20 09:01 08/16/20 11:00 Labs: Laboratory Results - last 24 hr 08/16/20 08/17/20 20:30 09:01 WBC 13.1 H 11.4 H RBC 5.50 5.53 Hgb 17.9 H 17.8 H Hct 52.8 53.1 H MCV 96.1 96.0 MCH 32.6 32.1 MCHC 33.9 33.5 RDW 15.6 H 15.4 H Plt Count 174 178 Neut % (Auto) 67.8 66.9 Lymph % (Auto) 18.7 L 19.1 L [place] % (Auto) 11.9 12.3 Eos % (Auto) 1.1 L 1.3 L Baso % (Auto) 0.5 0.4 Neut # (Auto) 8900 H 7600 H Lymph # (Auto) 2500 2200 [place] # (Auto) 1600 H 1400 H Eos # (Auto) 100 100 Baso # (Auto) 100 0 PFSH Medical History Arthritis History of kidney stones Surgical History History of ankle surgery Family History Other Adopted Social History household members: family Smoking Status: Current every day smoker Assessment & Plan Assessment & Plan narrative: Patient with diverticulitis and a possible early abscess. Will continue broad-spectrum antibiotics. If no bowel movement through the night will give a Dulcolax suppository. Clinically he is improved. White blood cell count is normal. Will check labs tomorrow. Continue DVT prophylaxis. May shower. Quality VTE Deep Vein Thrombosis/Pulmonary Embolism Present on Admission: No
[2020-08-17] MEDS: DEXTROSE 5%-LACTATED RINGERS 1,000 ML 125 ML IV (19:03)
[2020-08-17 20:54] VITALS: BP 123/93; PULSE 87; RESP 18; TEMP 37.2; O2SAT 95
[2020-08-18] VITALS (8 sets, daily range): BP systolic 125–152; BP diastolic 78–105; PULSE 71–88; RESP 16–18; TEMP 36.1–36.9; O2SAT 92–97
--- NOTE | 2020-08-18 00:10 | PC.NURSE ---
2310 Received safe hand-off report. The patient is lying in bed with HOB elevated to 30 degrees, awake and oriented x4. He has a left antecubital PIV with D5LR infusing at 100mL/h. He informed me the tylenol he got around 2200 has nearly resolved his headache. He denies other pain. NPO orders current. He is on room air. No s/sx of distress.
[2020-08-18] MEDS: PIPERACILLIN-TAZO 3.375 GM/50 ML FROZ.PIGGY IV ×4 (03:55→20:57)
[2020-08-18] MEDS: DEXTROSE 5%-LACTATED RINGERS 1,000 ML 125 ML IV ×2 (03:59→14:04)
[2020-08-18 05:51] LABS: Add Manual Diff / Slide Review NO; Basophils Absolute Auto 100 /uL (0-100); Basophils Percent Auto 0.6 % (0-2); Eosinophils Absolute Auto 100 /uL (0-450); Eosinophils Percent Auto 1.2 % (2-4); Hematocrit 51.8 % (41-53); Hemoglobin 17.8 g/dL (13.5-17.5); Lymphocytes Absolute Auto 2000 /uL (1100-4500); Lymphocytes Percent Auto 18.4 % (25-40); Mean Corpuscular HGB Conc 34.3 % (30-36); Mean Corpuscular Hemoglobin 32.7 PG (26-34); Mean Corpuscular Volume 95.3 fL (80-100); Monocytes Absolute Auto 1400 /uL (0-900); Monocytes Percent Auto 12.8 % (3-14); Neutrophils Absolute Auto 7300 /uL (1500-7000); Platelet Count 191 X10^3/uL (150-400); Red Blood Cell Count 5.44 X10^6/uL (4.5-5.9); Red Cell Distribution Width 15.5 % (11.6-14.8); White Blood Cell Count 10.8 X10^3/uL (4.5-11.0)
[2020-08-18 05:58] LABS: Alanine Aminotransferase 21 IU/L (<50); Albumin 3.8 g/dL (3.5-5.0); Albumin Globulin Ratio 1.2 (1.0-2.8); Alkaline Phosphatase 39 U/L (38-126); Aspartate Aminotransferase 30 IU/L (17-59); BUN Creatinine Ratio 6.8 (6-22); Bilirubin Total 0.9 mg/dL (0.2-1.3); Blood Urea Nitrogen 8 mg/dL (9-20); Carbon Dioxide 27 mmol/L (22-32); Chloride 106 mmol/L (98-107); Estimated Glomerular Filt Rate > 60.0 mL/min (>60); Globulin 3.3 g/dL (1.7-4.1); Glucose 90 mg/dL (70-100); HEMOLYSIS < 15 (0-50); Potassium 3.8 mmol/L (3.4-5.1); Sodium 140 mmol/L (137-145); Total Protein 7.1 g/dL (6.3-8.2)
[2020-08-18] MEDS: ACETAMINOPHEN 325 MG TABLET 650 MG PO (06:09)
[2020-08-18] MEDS: KETOROLAC 30 MG/ML VIAL IV ×2 (06:55→20:57)
[2020-08-18] MEDS: ONDANSETRON 4 MG/2 ML INJ IV (06:55)
[2020-08-18] MEDS: PANTOPRAZOLE 40 MG VIAL IV (09:25)
[2020-08-18] MEDS: NICOTINE 14 PATCH 14 MG TOP (09:25)
[2020-08-18] MEDS: GABAPENTIN 300 MG CAPSULE PO ×2 (09:25→20:57)
[2020-08-18] MEDS: ENOXAPARIN 40 MG/0.4 ML SYRINGE SUBCUT (09:26)
[2020-08-18] MEDS: BISACODYL 10 MG SUPP PR (09:26)
--- NOTE | 2020-08-18 12:19 | PM.PN.1 ---
Subjective Subjective Date Patient Seen: 08/18/20 Time Patient Seen: 12:19 Interval history: The patient is feeling much better today. Has been up walking. Took a shower. No cough or cold or heart problem. No abdominal pain. Had a bowel movement after suppository. Exam Vital Signs (past 8 hours): - 08/18/20 08:40 08/18/20 11:50 Temperature 96.9 F L 98.2 F Pulse Rate 78 75 Respiratory Rate 17 16 Blood Pressure 134/78 134/90 Pulse Oximetry 95 94 Oxygen Delivery Method Room Air Oxygen Flow Rate 0 Narrative Exam Narrative: Lungs clear to auscultation no rales or rhonchi heart regular rate and rhythm without murmur gallop abdomen is protuberant mildly distended very soft nontender without mass Objective Labs Result Diagrams: 08/18/20 05:34 08/18/20 05:34 Labs: Laboratory Results - last 24 hr 08/18/20 08/18/20 05:34 05:34 WBC 10.8 RBC 5.44 Hgb 17.8 H Hct 51.8 MCV 95.3 MCH 32.7 MCHC 34.3 RDW 15.5 H Plt Count 191 Neut % (Auto) 67.0 Lymph % (Auto) 18.4 L [place] % (Auto) 12.8 Eos % (Auto) 1.2 L Baso % (Auto) 0.6 Neut # (Auto) 7300 H Lymph # (Auto) 2000 [place] # (Auto) 1400 H Eos # (Auto) 100 Baso # (Auto) 100 Sodium 140 Potassium 3.8 Chloride 106 Carbon Dioxide 27 BUN 8 L Creatinine 1.17 Estimated GFR > 60.0 BUN/Creatinine Ratio 6.8 Glucose 90 Calcium 9.0 Magnesium 2.0 Total Bilirubin 0.9 AST 30 ALT 21 Alkaline Phosphatase 39 Total Protein 7.1 Albumin 3.8 Globulin 3.3 Albumin/Globulin Ratio 1.2 [facility] Medical History Arthritis History of kidney stones Surgical History History of ankle surgery Family History Other Adopted Social History household members: family Smoking Status: Current every day smoker Assessment & Plan Assessment & Plan narrative: Doing well. White count is normal. Will begin diet. Possible discharge tomorrow. Request dietitian to instruct patient. He will be discharged on a low residue diet but then begin a high-fiber diet later. Quality VTE Deep Vein Thrombosis/Pulmonary Embolism Present on Admission: No
--- NOTE | 2020-08-19 00:40 | PC.NURSE ---
Addendum entered by Rylee Rutledge R.N. 08/19/20 02:47: 0230 Pt's BP back to an acceptable level for the time bein/95. No further action taken. Pt denies pain, headache, or feeling flush. Sleeping restfully. Original Note: 2300 Received safe patient hand-off. The patient is sitting semi-fowlers in bed, watching television. He is AOx4, on room air and has a left antecubital PIV that has LRD5 infusing at 80mL/h. He reports to me that his headache from evening shift has resolved. Denies other pain. He is independent in the room, so the bed alarm is off. No s/sx of distress. 0000 Received report from G[employer] MAIN [employer]TER that patient's BP was 147/104 after being checked twice. Other arm was about the same, minus 2 points diastolic. The patient is asymptomatic. His BP history shows he has been this hypertensive quite a few times while here in the hospital. He is currently on no antihypertensives. Will recheck BP in 1 hour. Vital Signs (72 hours) 08/16/20 10:50 08/16/20 11:47 08/16/20 12:29 Temperature 98.0 F Pulse Rate 95 H 84 Respiratory Rate 16 22 14 Blood Pressure 156/106 H Pulse Oximetry 95 88 L 94 08/16/20 12:30 08/16/20 13:00 08/16/20 13:30 Temperature Pulse Rate 83 82 81 Respiratory Rate 13 14 14 Blood Pressure 156/96 H 140/95 H Pulse Oximetry 94 92 95 08/16/20 14:00 08/16/20 14:31 08/16/20 15:00 Temperature Pulse Rate 80 80 Respiratory Rate 15 16 Blood Pressure Pulse Oximetry 96 74 L 94 08/16/20 15:19 08/16/20 16:07 08/16/20 19:46 Temperature 98.6 F 98.1 F Pulse Rate 83 79 87 Respiratory Rate 16 20 18 Blood Pressure 153/92 H 140/101 H 172/108 H Pulse Oximetry 94 96 97 08/16/20 22:31 08/17/20 00:40 08/17/20 03:55 Temperature 97.9 F 97.9 F Pulse Rate 92 H 93 H 82 Respiratory Rate 14 14 Blood Pressure 141/98 H 124/90 134/98 H Pulse Oximetry 95 96 02/03/21 07:59 08/17/20 15:55 08/17/20 20:54 Temperature 97.9 F 99.0 F 99.0 F Pulse Rate 86 94 H 87 Respiratory Rate 20 18 18 Blood Pressure 153/84 H 132/92 H 123/93 H Pulse Oximetry 96 94 95 08/18/20 00:08 08/18/20 04:15 08/18/20 08:40 Temperature 98.3 F 98.5 F 96.9 F L Pulse Rate 88 77 78 Respiratory Rate 17 16 17 Blood Pressure 134/93 H 147/89 H 134/78 Pulse Oximetry 94 97 95 08/18/20 11:50 08/18/20 16:16 08/18/20 20:10 Temperature 98.2 F 97.9 F 97.4 F L Pulse Rate 75 75 74 Respiratory Rate 16 17 18 Blood Pressure 134/90 125/96 H 152/100 H Pulse Oximetry 94 92 95 08/18/20 23:45 08/18/20 23:50 Temperature 97.8 F Pulse Rate 71 Respiratory Rate 18 Blood Pressure 147/104 H 147/105 H Pulse Oximetry 95
[2020-08-19] MEDS: PIPERACILLIN-TAZO 3.375 GM/50 ML FROZ.PIGGY IV ×2 (02:32→08:23)
[2020-08-19] MEDS: DEXTROSE 5%-LACTATED RINGERS 1,000 ML 80 ML IV (02:33)
[2020-08-19 02:35] VITALS: BP 137/95; PULSE 74; RESP 18; O2SAT 95
[2020-08-19 04:45] VITALS: BP 134/90; PULSE 68; RESP 18; TEMP 36.9; O2SAT 95
[2020-08-19 05:54] LABS: Add Manual Diff / Slide Review NO; Basophils Absolute Auto 100 /uL (0-100); Basophils Percent Auto 0.9 % (0-2); Eosinophils Absolute Auto 200 /uL (0-450); Eosinophils Percent Auto 1.6 % (2-4); Hematocrit 52.1 % (41-53); Hemoglobin 17.4 g/dL (13.5-17.5); Lymphocytes Absolute Auto 2200 /uL (1100-4500); Lymphocytes Percent Auto 23.8 % (25-40); Mean Corpuscular HGB Conc 33.4 % (30-36); Mean Corpuscular Hemoglobin 32.1 PG (26-34); Mean Corpuscular Volume 96.1 fL (80-100); Monocytes Absolute Auto 1200 /uL (0-900); Monocytes Percent Auto 12.7 % (3-14); Neutrophils Absolute Auto 5600 /uL (1500-7000); Platelet Count 200 X10^3/uL (150-400); Red Blood Cell Count 5.43 X10^6/uL (4.5-5.9); Red Cell Distribution Width 15.2 % (11.6-14.8); White Blood Cell Count 9.3 X10^3/uL (4.5-11.0)
[2020-08-19 08:18] VITALS: BP 140/86; PULSE 69; RESP 14; TEMP 36.5; O2SAT 94
[2020-08-19] MEDS: NICOTINE 14 PATCH 14 MG TOP (08:22)
[2020-08-19] MEDS: ENOXAPARIN 40 MG/0.4 ML SYRINGE SUBCUT (08:23)
[2020-08-19] MEDS: PANTOPRAZOLE 40 MG VIAL IV (08:23)
[2020-08-19] MEDS: GABAPENTIN 300 MG CAPSULE PO (08:23)
--- NOTE | 2020-08-19 09:51 | DIET.PN ---
Dietary Progress Note Assessment: 50y M admitted for acute diverticulitis c early abscess being treated conservatively referred to nutrition for diet instruction on low residue and high fiber to support diverticulosis. Pt has gained 15% body weight in past year secondary to comfort eating through global pandemic, pts BP has been elevated this hospital stay (137/95), pt not currently on BP meds. 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 Generally follows strict diet for 4mo of the year consisting of lean pro, pro shakes, and steamed veg and the remainder of the year avoids most dairy and most processed foods but has a more flexible diet including his weakness which are good quality, homemade sweets. Pt endorses drinking 2 etoh equivalents nightly. Pt recently relocated to the area from [facility]. 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 Pt feels his health has changed over past two years since turning 49y. He is upset c himself for gaining so much weight, this is his highest weight ever, and has developed excess weight around his belly. Pt reports drinking chemicals from under sink as child and since has had sensitive stomach. Pt has been dealing c these abd pains as well as early satiety and frequent emesis since June 2020. Pt does not want to follow his strict diet for the rest of his life, however expresses knowledge deficit on how to build moderately healthy food routine which will support his digestive tract and overall vitality. Pt consumes excessive ibuprofen daily to manage chronic pain from injuries, does not want to use opioids, interested in foods to support inflammation. Pt expresses difficulty consuming green vegetables and leans towards wanting to supplement nutrients rather than consuming the food-form, which is common in the body building community. 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 Interventions: 1. Educated pt on role of fiber in diet, difference between and sources of soluble and insoluble fiber. Provided pt handout with fiber content of foods and gave pt goal of 25-30g/d once healed from this incident. 2. Educated pt on low residue diet to follow for next week once d/c'd using handout with recommended foods and sample menus. Followed that with handout on how to slowly add fiber back in while monitoring for any abd sx to eventually end up with high-fiber diet to support overall health and diverticulosis. 3. Pt requests referral for outpatient nutrition visits, pt louis Clements here at [facility], pt will request nutrition visit at that time. Diet Order: Full Liquid EER: 120g PRO (1g/kg) Monitoring/Evaluations: diet advancement, will watch for OP referral to continue counseling pt on appropriate diet for age, activity level, HTN, inflammation, weight stability, and personal goals.
[2020-08-19 12:59] VITALS: BP 135/92; PULSE 84; RESP 16; TEMP 37; O2SAT 95
--- NOTE | 2020-08-19 13:09 | PM.DS.1 ---
History of Present Illness History of Present Illness Date Patient Seen: 08/16/20 Time Patient Seen: 14:40 Chief complaint: irratability lower abd/progressively worse 1 month Narrative: Patient is a gentleman who has not been feeling completely well for about a month. Last 2 weeks he has developed pain in his lower abdomen. Most of his pain actually is been in the right lower quadrant. He has noted that he has become somewhat distended gradually. When he urinates and then stops he sometimes gets a shooting pain through both sides of his pelvis. He has a history of kidney stones in the distant past. No blood in his urine. No dysuria. He has been having frequent bouts of nausea and vomiting at night. Up until recently had no problems swallowing but after eating and vomiting a sandwich he did have a little trouble swallowing. No hematemesis. He has noticed that his stool has been a little darker though not black. He takes a large amount of ibuprofen due to ankle pain from an old injury. He also drinks 2 shots before he goes to bed. The patient has not had pain like this before. He has noticed today that if he had a very small bowel movement which is unusual and is not passing flatus and longer. He has been having night sweats for a few weeks. He does not know his family history regarding malignancy as he is adopted. Discharge Providers Provider Date of admission: 08/16/20 14:43 Discharge Date: 08/19/20 Primary care physician: RENZO Mancia Consults: 08/16/20 16:05 Consult to Discharge Planning Routine Comment: 08/18/20 12:18 Consult to Dietitian, Adult Routine Comment: Reason For Exam: instruct in low and high fiber diet Discharge provider: Daylin Lutz MD Summary Hospital Course Discharge Diagnosis: Diverticulitis Hospital Course: Treated with IV antibiotics with resolution of pain and wBC Status at Discharge Cognitive/behavioral status at discharge: oriented Functional status at discharge: independent ambulation Overall status at discharge: patient is progressing back to baseline Time Spent with Patient Time spent: Greater than 30 minutes Exam Vital Signs (past 8 hours): - 08/19/20 08:18 08/19/20 12:59 Temperature 97.7 F 98.6 F Pulse Rate 69 84 Respiratory Rate 14 16 Blood Pressure 140/86 135/92 H Pulse Oximetry 94 95 Oxygen Delivery Method Room Air Oxygen Flow Rate 0 Narrative Exam Narrative: GENERAL: Alert, comfortable. Appears stated age. Answers questions promptly and appropriately. Vital signs noted. HENT: Normocephalic, atraumatic. Hearing intact. EYES: Conjunctiva pink, sclera white, no periorbital swelling. CARDIOVASCULAR: Regular rate. No pedal edema. RESPIRATORY: Non-tachypneic, breathing comfortably on room air. GASTROINTESTINAL: Abdomen soft and non-distended; nontender MUSCULOSKELETAL: Equal tone and mass bilaterally. SKIN: Warm, dry, soft, appropriate color for ethnicity. No other lesions, rashes, or wounds. NEURO: Alert and Oriented X 3. No gross sensory deficits, or cognitive issues. PSYCH: Appropriate affect and mood. Objective Imaging CT scan - abdomen: Radiologist's impression: [address] [id number] Scan ReportSigned Patient: Bari Martínez KMR#: [id number]: 1970Acct:[id number]/Sex: 50 / MDate of Service: 08/16/20Loc: EDAccession Number: [id number] Procedure: CT abdomen pelvis w con Ordering Provider: Cheryle Bell- PROCEDURE: CT ABDOMEN PELVIS W CON INDICATIONS: abd pain, bloating TECHNIQUE: After the administration of intravenous contrast, 5 mm thick sections acquired from the diaphragm to the symphysis. 5 mm coronal and sagittal reformats were acquired. For radiation dose reduction, the following was used: automated exposure control, adjustment of mA and/or kV according to patient size. COMPARISON: None. FINDINGS: Image quality: Excellent. ABDOMEN: Lung bases: Bibasilar dependent atelectasis is seen. Heart size is normal. Solid organs: Liver is normal in size and enhancement. Gallbladder is within normal limits. Biliary system is non dilated. Pancreas enhances normally. Spleen is normal in size and enhancement. No adrenal nodules. Kidneys demonstrate normal size and enhancement, without hydronephrosis. 6 millimeter nonobstructing stone is noted in midpole of left kidney. 2-3 millimeter nonobstructing stone is seen in midpole of right kidney. Peritoneum and bowel: There is no bowel obstruction. No gastric or small bowel wall thickening. Appendix is visualized and is within normal limits. Ascending colon, transverse colon and descending colon appears within normal limits. Significant wall thickening with pericolonic fat stranding involving mid to distal portion of sigmoid colon within left lower quadrant is seen. Extensive sigmoid diverticulosis is seen. Ill-defined hypodense area medial to the inflamed mid to distal sigmoid colon is noted with surrounding fat stranding and subtle peripheral enhancement concerning for early developing abscess collection. No peritoneal free fluid or free air. Nodes and vessels: No retroperitoneal or mesenteric adenopathy by size criteria. Aorta and inferior vena cava are normal in size. Miscellaneous: No ventral hernias. PELVIS: Genitourinary: Bladder wall thickness is normal. Miscellaneous: No inguinal hernias or adenopathy. Bones: No suspicious bony lesions. No vertebral body compression fractures. IMPRESSION: 1. Finding is suggestive of acute diverticulitis involving mid to distal sigmoid colon in left lower quadrant with suggestion of early developing abscess collection medial to the inflamed sigmoid colon. No discrete drainable fluid collection is seen. No peritoneal free fluid or free air. 2. Normal appendix. No bowel obstruction. 3. Bilateral nonobstructing renal calculi. No hydronephrosis. 4. Bibasilar atelectasis. Dictated by: Levar Del Castillo M.D. on 08/16/2020 at 12:32 Approved by: Levar Del Castillo M.D. on 08/16/2020 at 12:35 Labs Result Diagrams: 08/19/20 05:25 08/18/20 05:34 Labs: Laboratory Results - last 24 hr 08/19/20 05:25 WBC 9.3 RBC 5.43 Hgb 17.4 Hct 52.1 MCV 96.1 MCH 32.1 MCHC 33.4 RDW 15.2 H Plt Count 200 Neut % (Auto) 61.0 Lymph % (Auto) 23.8 L [place] % (Auto) 12.7 Eos % (Auto) 1.6 L Baso % (Auto) 0.9 Neut # (Auto) 5600 Lymph # (Auto) 2200 [place] # (Auto) 1200 H Eos # (Auto) 200 Baso # (Auto) 100 PFSH Medical History Arthritis History of kidney stones Surgical History History of ankle surgery Family History Other Adopted Social History household members: family Smoking Status: Current every day smoker Discharge Assessment & Plan Assessment and Plan Assessment: Diverticulitis Plan of Treatment: Complete course of antibiotics as an outpatient Follow up with Dr. Bonner next week Discharge Plan Discharge Plan Patient Disposition: Home Provider Discharge Comment: You had acute diverticulitis with a small abscess. Prescriptions for antibiotics have been sent to [facility] pharmacy in [place] for you. These may make you nauseated or give you diarrhea. If the diarrhea becomes severe please let me know. You may use a fiber supplement such as Metamucil, Benefiber, or psyllium husk. Use 2 tspn in 8 oz water once daily to start. You may increase or decrease the amount and frequency as needed. The goal is to have a soft, formed, stool without straining, and without having to sit on the toilet for more than 2 minutes to have a bowel movement. You may use a probiotic such as Lactobacillus or Culturelle to help maintain normal gut ever while you are on antibiotics. Discharge orders & Medications Prescriptions: New clindamycin HCl 300 mg capsule 300 mg PO TID Qty: 20 RF: 0 levofloxacin 750 mg tablet 750 mg PO DAILY Qty: 7 RF: 0 nicotine 14 mg/24 hr Patch 24 Hour 14 mg topical DAILY Qty: 14 RF: 0 Follow up/Referrals: Franci Martinez ARNP [Primary Care Provider] - Michael Bonner MD [Physician] - 08/25/20 1:00 pm (If you need to reach a doctor change this appointment please call our office. If the office is closed in you need to reach a doctor listen to the message and will structure you how to page call the doctor industrial relations commissioner for our practice. Please have a piece of paper and pen ready to write the number down) Diet/Activity/Treatments Diet: Diet as Tolerated Diet comment: low fiber diet Skin/Wound/Dressing Care Report to your healthcare provider any signs of infection, such as:: chills, fever, night sweats and increased pain Visit Report/Discharge Packet Instructions: Smoking Cessation Drugs: Nicotine Replacement Products, Smoking Cessation for Older Adults: It's Not Too Late!, Low-Fiber/Low-Residue Diet, Nicotine Transdermal Patch Discharge Data Primary Care Provider: Franci Martinez VTE Deep Vein Thrombosis/Pulmonary Embolism Present on Admission: No
--- NOTE | 2020-08-19 13:38 | PC.NURSE ---
Patient given discharge instructions and questions answered. Iv removed. Escorted out to personal vehicle via wheelchair at 13:40.
== END 2020-08-19 13:39 | disposition home or self-care (01) | DRG 244 ==
LOC: ED 10:51 → AC 14:52
PROVIDERS: Admitting Provider Specialist; Emergency Provider Nurse Practitioner Family; PCP Registered Nurse; Referring Provider Nurse Practitioner Family; Visit Provider Specialist
DX: K57.20 Diverticulitis of large intestine with perforation and abscess without bleeding (principal); F17.210 Nicotine dependence, cigarettes, uncomplicated; E66.9 Obesity, unspecified; Z68.33 Body mass index [BMI] 33.0-33.9, adult
CPT/HCPCS: 36415; 74022; 74177; 80053; 80320; 81003; 82150; 83605; 83690; 83735; 85025; 85379; 85610; 85730; 87635; 93005; 96361; 96365; 96375; 99222; 99231; 99238; 99284; C9803; C9113; J1650; J1885; J2405; J2543; J7121; Q9967

== ENCOUNTER → 2020-09-02 09:58 | Outpatient (CLI) | payer OTHER, MEDICAID, SELFPAY ==
[2020-08-17 17:01] VITALS: BMI 33.0
--- NOTE | 2020-09-02 10:03 | DI.RAD.S_ITS ---
PROCEDURE: XR ANKLE LT MIN 3V INDICATIONS: chronic left ankle pain TECHNIQUE: 3 views of the ankle were acquired. COMPARISON: None. FINDINGS: Bones: No fractures or dislocations. Ankle mortise is normally aligned. No suspicious bony lesions. Fixation plate laterally at the fibula shows no abnormality Soft tissues: No tibiotalar joint effusion. Achilles tendon appears normal. IMPRESSION: Prior lateral fixation plate distal fibular fracture, no sign of device loosening or disruption. Source of pain is not identified otherwise. Dictated by: Duong Flores M.D. on 09/02/2020 at 11:06 Approved by: Duong Flores M.D. on 09/02/2020 at 11:10
[2020-09-02 11:27] LABS: Cholesterol 196 mg/dL (140-199); HDL Cholesterol 22 mg/dL (40-60); LDL Cholesterol Calculated 147 mg/dL (<100); Triglycerides 135 mg/dL (35-150)
== END ==
PROVIDERS: PCP Registered Nurse; Referring Provider Registered Nurse; Visit Provider Registered Nurse
DX: Z13.220 Encounter for screening for lipoid disorders (principal); M25.572 Pain in left ankle and joints of left foot; G89.29 Other chronic pain
CPT/HCPCS: 36415; 73610; 80061

== ENCOUNTER → 2020-10-13 09:10 | Outpatient (CLI) | payer OTHER, MEDICAID, SELFPAY ==
[2020-10-13 10:46] LABS: COVID19 -Nasal RAPID Negative (Negative)
== END ==
PROVIDERS: PCP Registered Nurse; Visit Provider Specialist
DX: Z20.822 Contact with and (suspected) exposure to COVID-19 (principal)
CPT/HCPCS: 87635; C9803

== ENCOUNTER 2020-10-14 06:17 | Day surgery (SDC) | payer OTHER, MEDICAID, SELFPAY ==
--- NOTE | 2020-10-14 | PATH_ITS ---
[facility] Accession Number: [id number] . 01 Material submitted: . PART A: colon - POLYP AT 15CM PART B: colon - POLYP AT 10CM . 01 Clinical history: . DX COLONOSCOPY . 01 Diagnosis: A. Colon Polyp at 15 cm, Biopsy: Colonic mucosa with focal mucosal hyperplasia and benign lymphoid aggregate. Negative for dysplasia or malignancy. Additional step sections examined. . B. Colon Polyp at 10 cm, Biopsy: Hyperplastic polyp. MRV 10/20/2020 1251 Local . 01 Electronically signed: . Marvin Horton MD, PhD, Pathologist NPI- [id number] . 01 Gross description: . A. The specimen is received in formalin, labeled polyp at 15 cm and consists of two alva-pink fragments of soft tissue measuring 0.8 x 0.6 x 0.2 cm in aggregate. The specimen is entirely submitted in cassette A1. B. The specimen is received in formalin, labeled polyp at 10 cm and consists of two alva-pink fragments of soft tissue measuring 0.6 x 0.5 x 0.2 cm in aggregate. The specimen is entirely submitted in cassette B1. ([id number]) /MRV 10/18/2020 1608 Local . 01 Pathologist provided ICD-10: K63.5, K62.1 . 01 CPT . 338600, [id number] Performed at: [address], [place], [place] [id number] MD Shamar Pritchard MD Phone: [phone]
[2020-10-14 07:26] VITALS: BP 137/102; PULSE 82; RESP 16; TEMP 36.1; O2SAT 97; BMI 30.9
--- NOTE | 2020-10-14 07:34 | PM.HP.1 ---
History of Present Illness History of Present Illness Date Patient Seen: 10/14/20 Time Patient Seen: 07:34 Chief complaint: DX COLONOSCOPY Narrative: Patient is a gentleman who has never had a colonoscopy and is 50 years of age. He had a recent bout of diverticulitis. He is here for colonoscopy. Patient History Medical History Ankle pain (~2005) Arthritis Cardiac arrhythmia (~2001) Chicken pox (~1974) Foot pain (~2005) History of kidney stones (~1999) Migraines (~2001) Panic attack (~2001) Psoriasis (~1999) Recurrent sinusitis (~1999) Tinnitus (~2017) Surgical History Anesthesia History of ankle surgery (~2005) Family & Social History Family History Other Adopted Social History: household members friend(s) Tobacco & Substance use: Tobacco type cigarettes Smoking Status Current every day smoker Smoking packs per day 0.5 alcohol intake current alcohol intake frequency a few times a month Substance Use Type marijuana Meds Home Medications and Allergies Home Medications Medication Instructions Recorded Confirmed Type ibuprofen 800 mg PO BID 10/14/20 10/14/20 History multivitamin 1 tab PO DAILY 10/14/20 10/14/20 History Allergies Allergy/AdvReac Type Severity Reaction Status Date / Time No Known Drug Allergies Allergy Verified 10/14/20 07:21 Review of Systems Review of Systems Narrative: Patient has been dieting and losing weight. ROS: Yes All systems reviewed with the patient and are negative except as otherwise documented Exam Vital Signs (past 8 hours): - 10/14/20 07:26 Temperature 96.9 F L Pulse Rate 82 Respiratory Rate 16 Blood Pressure 137/102 H Pulse Oximetry 97 Oxygen Delivery Method Room Air Narrative Exam Narrative: Pleasant cooperative patient no apparent distress. Lungs are clear to auscultation. No rales or rhonchi. Heart regular rate and rhythm no murmur gallop. Abdomen is soft nontender without mass. No obvious hernias. Patient is alert and oriented x3. Assessment & Plan Assessment & Plan narrative: The patient for a screening colonoscopy. I have discussed the procedure with them. Risks of bleeding, perforation which would necessitate major operation, failure to find remove all lesions, the potential tattoo were all discussed. All questions were answered. They wished to proceed.
--- NOTE | 2020-10-14 07:36 | PM.PREOP ---
Pre-operative Note COVID-19 COVID-19 status: Negative Result date/Date tested (Pos, Neg/Pending): 10/13/20 Interval Note History & Physical reviewed/Exam performed by Physician: Yes Changes to H&P: No ASA Class (for procedural sedation): I
[2020-10-14] MEDS: MIDAZOLAM 5 MG/5 ML VIAL IV (07:58)
[2020-10-14] MEDS: fentaNYL 250 MCG/5 ML INJ IV (07:58)
--- NOTE | 2020-10-14 08:21 | PM.OP.ENDO ---
Operative Date/Time/Diagnoses Date of procedure: 10/14/20 Time of procedure: 08:21 Pre-op diagnosis: History of diverticulitis. Age 50. This is his 1st colonoscopy. Post-op diagnosis: same Procedure & Clinicians Study performed: Colonoscopy with cold biopsy Same procedure as scheduled: Yes Indications: Screening. Evaluate area of diverticulitis for possible tumor Surgeon: Michael Bonner Procedure Notes SCOAP/Timeout: Performed Procedure in detail: The patient was placed in the left lateral decubitus position and underwent IV sedation directed by the surgeon consisting of fentanyl and Versed. Digital exam was unremarkable. His prostate is flat.. The scope was inserted and advanced through the rectum into the sigmoid, descending, transverse, and ascending colon. Patient had narrowing at approximately 15-20 cm from the anal verge. There was extensive diverticulosis noted through this area which continued scattered throughout the colon.. The cecum was reached identified by the ileocecal valve and the appendiceal opening. The scope was gradually brought out. Polyps were found at from 10-15 cm from the anal verge. The polyp at 15 cm was biopsied and it may actually have reflected a area of diverticulosis turned inside out rather than an actual polyp. I put this specimen is separate container. Another small polyp was located 10 cm and was removed.. The scope ultimately was retroflexed in the rectum. The appearance was remarkable for large internal hemorrhoids. There is no ulcerations seen.. The scope was removed and the patient tolerated the procedure well. Prep was adequate. If the lesion at 15 cm was neoplastic the patient will need AP flexible sigmoidoscopy and further removal of this area. The did not want aggressively remove this if it turned out this was a area of diverticulosis and granulation tissue. Scope withdrawal time: 7.5 minutes(10.5 total) Sedation minutes: 32 Findings: diverticulosis, internal hemorrhoids and polyp Specimen(s): other (Polyp biopsies) Complications: none Post-procedure Recommendations: Colonscopy in 5 years (Depending on the pathology S scope may need to be done sooner or later. Patient will be contacted.) Follow up: as needed Disposition: PACU
[2020-10-14 08:28] VITALS: BP 168/108; PULSE 101; RESP 11; TEMP 36.5; O2SAT 94
[2020-10-14 08:33] VITALS: BP 168/101; PULSE 102; RESP 19; O2SAT 94
[2020-10-14 08:38] VITALS: BP 164/107; PULSE 96; RESP 12; O2SAT 95
[2020-10-14 08:52] VITALS: BP 153/107; PULSE 83; RESP 11; O2SAT 92
[2020-10-14 09:00] VITALS: BP 155/105; PULSE 85; RESP 12; O2SAT 95
== END 2020-10-14 09:10 | disposition home or self-care (01) ==
PROVIDERS: PCP Registered Nurse; Referring Provider Registered Nurse; Visit Provider Specialist
PROC: 0DJD8ZZ Inspection of Lower Intestinal Tract, Via Natural or Artificial Opening Endoscopic (ICD-10-PCS; CPT 45378; principal; 2020-10-14 07:45)
DX: Z12.11 Encounter for screening for malignant neoplasm of colon (principal); Z87.19 Personal history of other diseases of the digestive system; K57.30 Diverticulosis of large intestine without perforation or abscess without bleeding; K64.8 Other hemorrhoids; K63.5 Polyp of colon
CPT/HCPCS: 45380; 99152; 99153; J2250; J3010

== ENCOUNTER → 2020-10-27 10:13 | Outpatient (CLI) | payer OTHER, MEDICAID, SELFPAY ==
--- NOTE | 2020-10-27 10:15 | DI.RAD.S_ITS ---
PROCEDURE: XR CHEST 2V INDICATIONS: smoking TECHNIQUE: 2 views of the chest were acquired. COMPARISON: None. FINDINGS: Surgical changes and devices: None. Lungs and pleura: Lungs are clear except for mild interstitial prominence consistent with prior smoking history. No pleural effusions or pneumothorax. Mediastinum: Mediastinal contours are normal. Heart size is normal. Bones and chest wall: No suspicious bony abnormalities. Soft tissues appear unremarkable. IMPRESSION: Mild interstitial prominence, reported prior smoking history. No mass or pneumonia seen. Dictated by: Duong Flores M.D. on 10/27/2020 at 11:19 Approved by: Duong Flores M.D. on 10/27/2020 at 11:20
== END ==
PROVIDERS: PCP Registered Nurse; Referring Provider Registered Nurse; Visit Provider Registered Nurse
DX: R03.0 Elevated blood-pressure reading, without diagnosis of hypertension (principal); F17.200 Nicotine dependence, unspecified, uncomplicated; E78.5 Hyperlipidemia, unspecified; K57.90 Diverticulosis of intestine, part unspecified, without perforation or abscess without bleeding; E66.9 Obesity, unspecified; Z68.31 Body mass index [BMI] 31.0-31.9, adult
CPT/HCPCS: 71046

== ENCOUNTER → 2020-11-15 16:09 | Outpatient (CLI) | payer OTHER, MEDICAID, SELFPAY ==
--- NOTE | 2020-11-16 13:18 | DIET.PN ---
Dietary Progress Note Assessment: 50y M attending nutrition f/u after inpatient stay for diverticulitis back in Sep 04. Pt has lost 20# since our initial consult, stopped daily etoh intake and is interested in further nutrition management for diverticulitis and body weight. Pt has hx of [employer] career where he would go on strict diets for 16w every July to maintain muscle mass and get shredded. This would often be alternating protein drinks c chicken and broccoli. Pt noticed having more difficulty c losing weight since turning 49 and gained 15% weight during the global pandemic. 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 Occasionally has protein shake in evening before bed. Pt states his testosterone is low and will be starting TRT soon. He states his energy is low all the time and has a lot of aches and pains. Pt started taking metamucil (14g added sugar) for a fiber source after our first visit and says this is going well. Nutrition Diagnosis: obesity r/t high intake sugar sweetened beverages and low intake fruits/veggies/fiber aeb BMI 31.8, pt eats one serving vegetables daily, pt has diverticulosis scattered throughout colon, pt consuming >150g added sugar daily. Interventions: 1. Pt not ready to increase F/V in diet yet so looked over his F/V supplements and the new fiber supplement he would like to start. Encouraged F/V intake but okayed pts new fiber supp as it provides 10g soluble fiber per serving c variety of spices for bioactive compounds. 2. Discussed role of added sugar in weight gain, fatigue, and pain. Collaborated c pt on figuring out how much sugar he drinks daily and pt was blown away. Discussed importance of sugar-free and artificial sugar-free beverages to meet his health goals. Pt will switch out unsweetened bubbly water for gatorade and will switch to a sugar free fiber supplement. 3. Discussed role of intermittent fasting with cellular repair. Pt will try 13 hour overnight fast per his interest. EER: 25g added sugar daily, 21g dietary fiber daily, increase bioactive compounds from F/V/spices Monitoring/Evaluations: pt will schedule f/u as needed as pt pays out of pocket for dietary services.
== END ==
PROVIDERS: PCP Registered Nurse; Referring Provider Registered Nurse; Visit Provider Registered Nurse
DX: K57.92 Diverticulitis of intestine, part unspecified, without perforation or abscess without bleeding (principal); E66.9 Obesity, unspecified; Z68.31 Body mass index [BMI] 31.0-31.9, adult; Z71.3 Dietary counseling and surveillance
CPT/HCPCS: 97802

== ENCOUNTER 2021-05-19 11:27 | Emergency (ER) | payer OTHER, MEDICAID, SELFPAY ==
[2021-05-19] VITALS (9 sets, daily range): BP systolic 125–169; BP diastolic 80–113; PULSE 64–89; RESP 12–24; TEMP 35.6; O2SAT 93–98; BMI 29.3
--- NOTE | 2021-05-19 11:45 | ED_ITS ---
HPI - General Adult General Chief complaint: Urogenital-Male Stated complaint: Lower right side back pain today Time Seen by Provider: 05/19/21 11:34 Source: patient Mode of arrival: Ambulatory History of Present Illness HPI narrative: Patient is a 51-year-old male here for evaluation of right-sided flank pain and right lower quadrant abdominal pain radiating down to his testicles. He states the pain started fairly early this morning after he woke up. He has had a kidney stone in the past but that was many years ago. He feels like this is a another kidney stone. No fevers. Is having nausea. No problems urinating. No change of bowel habits. No skin changes. Related Data Home Medications Medication Instructions Recorded Confirmed ibuprofen 800 mg tablet 800 mg PO BID 10/14/20 10/14/20 multivitamin 1 tab PO DAILY 10/14/20 10/14/20 Previous Rx's Medication Instructions Recorded varenicline 0.5 mg (11)-1 mg (42) See Rx Instructions PO PER PKG DIR 10/27/20 tablets in a dose pack ([facility] #53 ea Starting Month Box) hydrocodone 5 mg-acetaminophen 325 1 tab PO Q4-6H PRN #10 tab 05/19/21 mg tablet ondansetron 4 mg disintegrating 4 mg PO Q6H PRN #14 tab 05/19/21 tablet Allergies Allergy/AdvReac Type Severity Reaction Status Date / Time No Known Drug Allergies Allergy Verified 05/19/21 11:36 Review of Systems Cardiovascular Cardiovascular: Reports system reviewed and no additional complaints, except as documented Respiratory Respiratory: Reports system reviewed and no additional complaints, except as documented Gastrointestinal Gastrointestinal: Reports as per HPI, Reports abdominal pain, Reports nausea and Denies vomiting Musculoskeletal Musculoskeletal: Reports system reviewed and no additional complaints, except as documented Integumentary/Breasts Skin/Breast: Reports system reviewed and no additional complaints, except as documented Neurologic Neurologic: Reports system reviewed and no additional complaints, except as documented Hematologic/Lymphatic On Anticoagulants: No Patient History Medical History Ankle pain (~2005) Arthritis Cardiac arrhythmia (~2001) Chicken pox (~1974) Foot pain (~2005) History of kidney stones (~1999) Migraines (~2001) Panic attack (~2001) Psoriasis (~1999) Recurrent sinusitis (~1999) Tinnitus (~2018) Surgical History Anesthesia History of ankle surgery (~2005) Family History Other Adopted Social History household members: friend(s) Smoking Status: Current every day smoker alcohol intake: current Smoking Status: Current every day smoker tobacco type: cigarettes alcohol intake frequency: a few times a month Substance Use Type: marijuana Exam Initial Vital Signs Initial Vital Signs: Vital Signs Temperature 96.0 F L 05/19/21 11:34 Pulse Rate 89 05/19/21 11:34 Respiratory Rate 12 05/19/21 11:34 Blood Pressure 169/113 H 05/19/21 11:34 Pulse Oximetry 98 05/19/21 11:34 Const General: cooperative Limitations: mental status not altered Other: Uncomfortable HENMT Head: normal to inspection and normocephalic Eyes General: appearance normal, both eyes and all related structures Resp Effort & Inspection: normal respiratory effort Cardio Rate: regular rate GI Inspection: non-distended Palpation: soft, No firm and No tender Back/Spine/Pelvis Back: No CVA tenderness Skin General: no rashes or lesions noted Neuro General: patient alert, patient awake, patient oriented x3 and moves all extremities Extrem General: normal to inspection and capillary refill normal Psych Appearance: grossly normal and well kempt Course Orders Ordered: ED Orders 05/19/21 11:37 Basic Metabolic Panel Stat Complete Blood Count AUTO DIFF Stat 05/19/21 14:00 Urine Microscopic Stat Discontinued Medications Hydromorphone HCl (Hydromorphone 1 Mg Inj) 1 mg IV NOW ONE Stop: 05/19/21 11:43 Last Admin: 05/19/21 11:46 Dose: 1 mg Documented by: BIMAL Sodium Chloride (Normal Saline 0.9%) 1,000 mls @ 1,000 mls/hr IV BOLUS ONE Stop: 05/19/21 13:42 Last Infusion: 05/19/21 14:11 Dose: 0 mls/hr Documented by: Admin: 05/19/21 12:51 Dose: 1,000 mls/hr Documented by: BIMAL Ketorolac Tromethamine (Ketorolac 30 Mg/Ml Vial) 30 mg IV NOW ONE Stop: 05/19/21 11:43 Last Admin: 05/19/21 11:46 Dose: 30 mg Documented by: BIMAL Ondansetron HCl (Ondansetron 4 Mg/2 Ml Inj) 4 mg IV NOW ONE Stop: 05/19/21 11:43 Last Admin: 05/19/21 11:46 Dose: 4 mg Documented by: BIMAL Vital Signs Vital signs: Vital Signs - 8 hr 05/19/21 11:34 05/19/21 11:53 05/19/21 12:00 Temperature 96.0 F L Pulse Rate 89 74 73 Respiratory Rate 12 24 Blood Pressure 169/113 H 133/90 136/92 H Pulse Oximetry 98 97 93 05/19/21 12:30 05/19/21 13:00 05/19/21 13:30 Temperature Pulse Rate 64 65 70 Respiratory Rate Blood Pressure 125/80 Pulse Oximetry 93 96 98 05/19/21 14:00 05/19/21 14:30 05/19/21 14:52 Temperature Pulse Rate 73 77 78 Respiratory Rate Blood Pressure 142/91 H Pulse Oximetry 98 97 97 Medical Decision Making Lab Data Lab results reviewed: Yes I reviewed the patient's lab results. Result diagrams: 05/19/21 11:37 05/19/21 11:37 Labs: Lab Results 05/19/21 05/19/21 05/19/21 Range/Units 11:37 11:37 14:00 WBC 7.7 (4.5-11.0) X10^3/uL RBC 5.19 (4.5-5.9) X10^6/uL Hgb 16.8 (13.5-17.5) g/dL Hct 48.0 (41-53) % MCV 92.6 (80-100) fL MCH 32.5 (26-34) PG MCHC 35.1 (30-36) % RDW 14.0 (11.6-14.8) % Plt Count 202 (150-400) X10^3/uL Neut % (Auto) 55.0 (50-75) % Lymph % (Auto) 33.1 (25-40) % Phillips % (Auto) 10.9 (3-14) % Eos % (Auto) 0.7 L (2-4) % Baso % (Auto) 0.3 (0-2) % Neut # (Auto) 4300 (5791-4967) /uL Lymph # (Auto) 2600 (7967-4615) /uL Phillips # (Auto) 800 (0-900) /uL Eos # (Auto) 100 (0-450) /uL Baso # (Auto) 0 (0-100) /uL Sodium 141 (137-145) mmol/L Potassium 4.6 (3.4-5.1) mmol/L Chloride 107 (98-107) mmol/L Carbon Dioxide 24 (22-32) mmol/L BUN 15 (9-20) mg/dL Creatinine 1.21 (0.66-1.25) mg/dL Estimated GFR > 60.0 (>60) mL/min BUN/Creatinine Ratio 12.4 (6-22) Glucose 107 H (70-100) mg/dL Calcium 9.4 (8.4-10.2) mg/dL Urine RBC 10-30/hpf H (0-5/HPF) Urine WBC None seen (0-5/HPF) Urine Bacteria None seen (None) Urine Mucus 2+ H (Negative) Ur Culture Indicated? Cult not indicated Urine Dip Bedside Urine Glucose Negative Bedside Urine Bilirubin - Negative Bedside Urine Ketone - Negative Urine Specific [place] 1.030 Bedside Urine Occult Blood +++ Bedside Urine pH 6.0 Bedside Urine Protein - Negative Bedside Urine Urobilinogen - Negative Bedside Urine Nitrite - Negative Bedside Urine Leukocytes - Negative Esterase Point of care testing: Urine Dip Bedside Urine Glucose Negative Bedside Urine Bilirubin - Negative Bedside Urine Ketone - Negative Urine Specific [place] 1.030 Bedside Urine Occult Blood +++ Bedside Urine pH 6.0 Bedside Urine Protein - Negative Bedside Urine Urobilinogen - Negative Bedside Urine Nitrite - Negative Bedside Urine Leukocytes - Negative Esterase MDM Narrative Medical decision making narrative: Patient's labs today are unremarkable. Does have blood in his urine. Has had a kidney stone in the past he states this feels very similar to that. Kidney functions unremarkable. No signs of urinary tract infection. Had improvement/resolution of symptoms after medications here in the ER. Afebrile. Will discharge home with symptom treatment. We will hold on radiologic studies for now. Patient was given return precautions and follow- up instructions. He expressed understanding and agreement. Discharge Plan Departure Patient Disposition: Home Clinical Impression: Acute flank pain, Renal colic on right side Instructions: DI for Kidney Stones Activity Restrictions/Additional Instructions: Your presentation today is very consistent with a kidney stone. A prescription for medications was sent to your pharmacy of choice. Please start taking them as directed and as needed. Contact your primary doctor for a follow-up. Return to the emergency department for any new symptoms or worsening symptoms to include fevers, pain that is not controlled with the medications or inability to urinate. Prescriptions: New ondansetron 4 mg tablet,disintegrating 4 mg PO Q6H PRN (Reason: nausea and vomiting) Qty: 14 RF: 0 hydrocodone-acetaminophen 5-325 mg tablet 1 tab PO Q4-6H PRN (Reason: pain) Qty: 10 RF: 0 No Action Chantix Starting Month Box 0.5 mg (11)- 1 mg (42) tablets,dose pack See Rx Instructions PO PER PKG DIR Qty: 53 RF: 0 multivitamin Tablet 1 tab PO DAILY RF: 0 ibuprofen 800 mg Tablet 800 mg PO BID RF: 0 Referrals: Franci Martinez ARNP [Primary Care Provider] -
[2021-05-19 11:46] LABS: Add Manual Diff / Slide Review NO; Basophils Absolute Auto 0 /uL (0-100); Basophils Percent Auto 0.3 % (0-2); Eosinophils Absolute Auto 100 /uL (0-450); Eosinophils Percent Auto 0.7 % (2-4); Hemoglobin 16.8 g/dL (13.5-17.5); Lymphocytes Absolute Auto 2600 /uL (1100-4500); Lymphocytes Percent Auto 33.1 % (25-40); Mean Corpuscular HGB Conc 35.1 % (30-36); Mean Corpuscular Hemoglobin 32.5 PG (26-34); Mean Corpuscular Volume 92.6 fL (80-100); Monocytes Absolute Auto 800 /uL (0-900); Monocytes Percent Auto 10.9 % (3-14); Neutrophils Absolute Auto 4300 /uL (1500-7000); Platelet Count 202 X10^3/uL (150-400); Red Blood Cell Count 5.19 X10^6/uL (4.5-5.9); White Blood Cell Count 7.7 X10^3/uL (4.5-11.0)
[2021-05-19] MEDS: HYDROMORPHONE 1 MG INJ IV (11:46)
[2021-05-19] MEDS: ONDANSETRON 4 MG/2 ML INJ IV (11:46)
[2021-05-19] MEDS: KETOROLAC 30 MG/ML VIAL IV (11:46)
[2021-05-19 11:56] LABS: BUN Creatinine Ratio 12.4 (6-22); Blood Urea Nitrogen 15 mg/dL (9-20); Calcium 9.4 mg/dL (8.4-10.2); Carbon Dioxide 24 mmol/L (22-32); Chloride 107 mmol/L (98-107); Estimated Glomerular Filt Rate > 60.0 mL/min (>60); Glucose 107 mg/dL (70-100); HEMOLYSIS < 15 (0-50); Potassium 4.6 mmol/L (3.4-5.1); Sodium 141 mmol/L (137-145)
[2021-05-19] MEDS: SODIUM CHLORIDE 0.9% 1,000 ML 1000 ML IV (12:51)
[2021-05-19 14:30] LABS: Bacteria Urine None Seen; Culture Indicated Urine Cult Not Indicated; Mucus Urine 2+ (Negative); RBC Urine 10-30/HPF (0-5/HPF); WBC Urine None Seen (0-5/HPF)
== END 2021-05-19 15:00 | disposition home or self-care (01) ==
PROVIDERS: Emergency Provider Emergency Medicine; PCP Registered Nurse
DX: N23 Unspecified renal colic (principal); R11.0 Nausea; Z87.442 Personal history of urinary calculi
CPT/HCPCS: 36415; 80048; 81003; 81015; 85025; 96361; 96374; 96375; 99284; J1170; J1885; J2405

== ENCOUNTER 2023-02-17 06:49 | Emergency (ER) | payer SELFPAY ==
[2023-02-17] VITALS (7 sets, daily range): BP systolic 103–155; BP diastolic 63–99; PULSE 71–103; RESP 16–18; TEMP 35.9; O2SAT 93–98; BMI 32.6
--- NOTE | 2023-02-17 07:12 | ED_ITS ---
HPI - General Adult General Chief complaint: Upper Respiratory Symptoms Stated complaint: Poss Allergic reaction Time Seen by Provider: 02/17/23 06:55 Source: patient Mode of arrival: EMS History of Present Illness HPI narrative: Patient is a 52-year-old male who was brought in by EMS after having an apparent allergic reaction this morning. He received 0.3 mg of epinephrine and 50 mg of Benadryl. Patient states that he woke up this morning feeling like he could not breathe and feeling like his throat was closing. He states that it felt like he was regurgitating food. He thought that the ?shot? that he received by EMS helped his symptoms. Has never had anything like this in the past. Related Data Home Medications Medication Instructions Recorded Confirmed ibuprofen 800 mg tablet 800 mg PO BID 10/14/20 10/14/20 multivitamin 1 tab PO DAILY 10/14/20 10/14/20 Previous Rx's Medication Instructions Recorded varenicline 0.5 mg (11)-1 mg (42) See Rx Instructions PO PER PKG DIR 10/27/20 tablets in a dose pack ([employer] smoking cessation #53 ea Starting Month Box) hydrocodone 5 mg-acetaminophen 325 1 tab PO Q4-6H PRN pain #10 tabs 05/19/21 mg tablet ondansetron 4 mg disintegrating 4 mg PO Q6H PRN nausea and 05/19/21 tablet vomiting #14 tabs Allergies Allergy/AdvReac Type Severity Reaction Status Date / Time No Known Drug Allergies Allergy Verified 05/19/21 11:36 Review of Systems Review of Systems ROS Unobtainable: All systems reviewed & are unremarkable except as noted in HPI and below Patient History Medical History Ankle pain (~2005) Arthritis Cardiac arrhythmia (~2001) Chicken pox (~1974) Foot pain (~2005) History of kidney stones (~1999) Migraines (~2001) Panic attack (~2001) Psoriasis (~1999) Recurrent sinusitis (~1999) Tinnitus (~2017) Surgical History Anesthesia History of ankle surgery (~2005) Family History Other Adopted Social History household members: friend(s) Smoking Status: Current every day smoker alcohol intake: current Smoking Status: Current every day smoker tobacco type: cigarettes alcohol intake frequency: a few times a month Substance Use Type: marijuana Exam Initial Vital Signs Initial Vital Signs: Vital Signs Temperature 96.6 F L 02/17/23 06:52 Pulse Rate 103 H 02/17/23 06:52 Respiratory Rate 18 02/17/23 06:52 Blood Pressure 145/78 H 02/17/23 06:52 Pulse Oximetry 98 02/17/23 06:52 Oxygen Delivery Method Room Air 02/17/23 06:52 Const General: healthy appearing HENMT Mouth: tongue normal and No moist mucous membranes Teeth and gingiva: other (Missing all teeth) Resp Effort & Inspection: normal respiratory effort Auscultation: clear to auscultation bilaterally Cardio Rate: regular rate Rhythm: regular rhythm GI Inspection: normal to inspection Skin General: no rashes or lesions noted Neuro General: patient alert, patient awake and moves all extremities Extrem General: capillary refill normal Course Orders Ordered: ED Orders 02/17/23 07:32 XR soft tissue neck Stat Famotidine (Famotidine 20 Mg/2 Ml Vial) 20 mg IV NOW MARTY Last Admin: 02/17/23 07:33 Dose: 20 mg Documented By: DANNY Discontinued Medications Epinephrine HCl (Epinephrine 1 Mg/Ml) 0.5 mg IM NOW ONE Stop: 02/17/23 07:11 Last Admin: 02/17/23 08:15 Dose: Not Given Documented By: RB Lorazepam (Lorazepam 2 Mg/Ml Inj) 1 mg IV NOW ONE Stop: 02/17/23 07:22 Last Admin: 02/17/23 07:33 Dose: 1 mg Documented By: DANNY Methylprednisolone (Methylprednisolone 125 Mg/2 Ml Vial) 125 mg IV NOW ONE Stop: 02/17/23 07:06 Last Admin: 02/17/23 07:32 Dose: 125 mg Documented By: DANNY Vital Signs Vital signs: Vital Signs - 8 hr 02/17/23 06:52 02/17/23 09:41 02/17/23 10:00 Temperature 96.6 F L Pulse Rate 103 H 71 Respiratory Rate 18 Blood Pressure 145/78 H 104/63 103/67 Pulse Oximetry 98 94 Oxygen Delivery Method Room Air 02/17/23 10:00 02/17/23 10:30 02/17/23 10:30 Temperature Pulse Rate 73 74 Respiratory Rate Blood Pressure 104/68 Pulse Oximetry 93 94 Oxygen Delivery Method 02/17/23 11:00 02/17/23 11:00 02/17/23 11:30 Temperature Pulse Rate 77 Respiratory Rate Blood Pressure 145/76 H 141/99 H Pulse Oximetry 93 Oxygen Delivery Method 02/17/23 11:30 Temperature Pulse Rate 81 Respiratory Rate Blood Pressure Pulse Oximetry 95 Oxygen Delivery Method Medical Decision Making Lab Data Labs: Urine Dip Bedside Urine Glucose 250 mg/dl Bedside Urine Bilirubin - Negative Bedside Urine Ketone - Negative Urine Specific [place] 1.030 Bedside Urine Occult Blood - Negative Bedside Urine pH 6.0 Bedside Urine Protein +/- 15 Bedside Urine Urobilinogen - Negative Bedside Urine Nitrite - Negative Bedside Urine Leukocytes - Negative Esterase Point of care testing: Urine Dip Bedside Urine Glucose 250 mg/dl Bedside Urine Bilirubin - Negative Bedside Urine Ketone - Negative Urine Specific [place] 1.030 Bedside Urine Occult Blood - Negative Bedside Urine pH 6.0 Bedside Urine Protein +/- 15 Bedside Urine Urobilinogen - Negative Bedside Urine Nitrite - Negative Bedside Urine Leukocytes - Negative Esterase Imaging Data soft tissue neck: Radiologist's Impression: PROCEDURE:? XR SOFT TISSUE NECK ? INDICATIONS:? SOB and throat pain ? TECHNIQUE:? 2 views of the neck were acquired.? ? COMPARISON:? None. ? FINDINGS:? ? Airway:? The airway appears patent.? ? Soft tissues:? Prevertebral soft tissues are normal in thickness.? The epiglottis and aryepiglottic folds appear normal.? No soft tissue gas.? ? Bones:? No suspicious bony lesions.? Visualized cervical spine is normally aligned.? ? IMPRESSION:? No radiopaque foreign body. MDM Narrative Medical decision making narrative: Patient arrived by EMS. He received 0.3 mg of epinephrine and 50 mg of Benadryl IV. Prior to my initial evaluation the patient stated that he wanted water. He became somewhat agitated. He got up out of his exam room. Walked to another exam room. Started drinking water out of the sink. He states he felt like his throat was closing off. I went to evaluate him. His lungs were clear. He was able to breathe. Unsure if he was hypoxic because he was not on monitors. I had ordered more epinephrine. While the nursing staff was getting more epinephrine he was able to calm his breathing down. His lungs were still clear. I was able to calm him down. He stated that he would like more water. Advised that he not drink more water for concern that he potentially would need intubation. I offered him some ice chips. He stated that if he did get water he was going to leave. I advised that he stay. I told him that if he was having respiratory problems that he could potentially . He waved his arm at me and walked out the ambulance [facility] door. There were multiple people around witnessing my comments to him. Patient did actually leave. He was followed out the door and was able to be convinced to come back to the ER. He was placed back into his exam room for further evaluation. Patient was observed in the emergency department for greater than 4 hours without any return of his symptoms. I am not 100% convinced that his symptoms today were an allergic reaction/anaphylactic reaction. Have a higher concern that potentially this was sleep apnea. That he woke up gasping for air and then had a panic attack related to this. The other potential etiology is that he has reflux disease and potentially reflux the small amount of gastric content which then caused laryngeal spasm. He had no new exposures that would explain an anaphylactic reaction. Had a discussion with him and family at bedside regarding this. I advised that he talk with his primary doctor about obtaining a sleep study. We also discussed potentially starting on a reflux medication. He was given return precautions. He expressed understanding and agreement. I also have low suspicion for angioedema. Discharge Plan Departure Patient Disposition: Home Clinical Impression: Laryngeal spasm Activity Restrictions/Additional Instructions: I do recommend that you may contact with the primary doctor as your most likely going to need a referral for a sleep study. I would also recommend that you consider taking a anti-reflux medicines such as famotidine/Pepcid were potentially even a Tums prior to going to sleep. You can purchase these [id number]. Return to the emergency department for new symptoms. Prescriptions: No Action Chantix Starting Month Box 0.5 mg (11)- 1 mg (42) tablets,dose pack See Rx Instructions PO PER PKG DIR Qty: 53 0RF Rx Instructions: PO PER PKG DIR multivitamin Tablet 1 tab PO DAILY ibuprofen 800 mg Tablet 800 mg PO BID ondansetron 4 mg tablet,disintegrating 4 mg PO Q6H PRN (Reason: nausea and vomiting) Qty: 14 0RF hydrocodone-acetaminophen 5-325 mg tablet 1 tab PO Q4-6H PRN (Reason: pain) Qty: 10 0RF Stand Alone Forms: Patient Portal/API
--- NOTE | 2023-02-17 07:17 | PC.NURSE ---
pt started asking for water upon arrival to ed, explained to pt that he needed to wait for the doctor to evaluate him, pt continued to ask for water, while asking doctor if pt could have water, pt came out of room and walked to another room to attempt to drink some water Dr Neff went to see pt and while nurse was getting medication pt decided to walk out, pt walked out back door, SO went out back door to attempt to get pt to return. pt's resp were even and unlabored, pt walking without difficulty
[2023-02-17] MEDS: methylPREDNISolone 125 MG/2 ML VIAL IV (07:32)
--- NOTE | 2023-02-17 07:32 | DI.RAD.S_ITS ---
PROCEDURE: XR SOFT TISSUE NECK INDICATIONS: SOB and throat pain TECHNIQUE: 2 views of the neck were acquired. COMPARISON: None. FINDINGS: Airway: The airway appears patent. Soft tissues: Prevertebral soft tissues are normal in thickness. The epiglottis and aryepiglottic folds appear normal. No soft tissue gas. Bones: No suspicious bony lesions. Visualized cervical spine is normally aligned. IMPRESSION: No radiopaque foreign body. Dictated by: Chance Mckeon M.D. on 02/17/2023 at 7:53 Approved by: Chance Mckeon M.D. on 02/17/2023 at 7:53
[2023-02-17] MEDS: FAMOTIDINE 20 MG/2 ML VIAL IV (07:33)
[2023-02-17] MEDS: LORazepam 2 MG/ML INJ 1 MG IV (07:33)
--- NOTE | 2023-02-17 08:16 | PC.NURSE ---
This RN asked if he still wanted the epinephrine order for this patient. Provider asked that this medication not be given. This RN documented as such.
== END 2023-02-17 11:50 | disposition home or self-care (01) ==
PROVIDERS: Emergency Provider Emergency Medicine
DX: J38.5 Laryngeal spasm (principal); R06.02 Shortness of breath
CPT/HCPCS: 70360; 81003; 96374; 96375; 99283; 99284; J2060; J2930